=== PATIENT | female | born 1970 | race Caucasian/White ===

== ENCOUNTER 2018-01-18 17:39 | Emergency (ER) | payer OTHER ==
[2018-01-18] MEDS ORDERED: SODIUM CHLORIDE 0.9% 1,000 ML IV STA (18:33)
--- NOTE | 2018-01-18 18:59 | ED ---
SOB HPI - General Chief Complaint: Shortness of Breath Stated Complaint: SOB, chest pain & cough Time Seen by Provider: 01/18/18 18:15 Source: patient, RN notes reviewed Mode of arrival: ambulatory Limitations: no limitations - History of Present Illness Initial Comments: This is a 47-year-old female who presents to the emergency department with chief complaint of cough, chest pain and shortness of breath. Patient states that she has been having on going intermittent episodes of chest pain since November. She states that she has been having shortness of breath for 1 month. She states that she developed a cough on Thursday. Patient states that she was treated for a sinus infection with Levaquin and finished her antibiotic approximately 3-4 days ago. She continues to have a headache, nasal congestion and lightheadedness. She was supposed to go for an echo and stress test today but did not do so, stating she missed it because she has not been feeling well. She reports that her chest pain started in November and believes that it is due to anxiety. She states that her had a pulmonary embolism and in front of her in her living room. She states that he was brought back by EMS. Since that time, she has been having intermittent episodes of chest pain that she describes as left-sided and as a tightness. She states that sometimes the chest pain is relieved with Xanax. Cough began on Thursday and is productive of yellow sputum. She has been using a Breo inhaler that was prescribed to her by her PCP. She also reports nausea that started today as well as chills. Denies fevers, abdominal pain, vomiting, diarrhea or constipation, dysuria or hematuria, dizziness. - Related Data Home Medications Medication Instructions Recorded Confirmed ALPRAZolam [Xanax] 1 mg PO TID PRN 01/18/18 01/18/18 Albuterol Nebulized [Ventolin 2.5 mg INHALATION RT-Q6H PRN 01/18/18 01/18/18 Nebulized] DULoxetine HCL [Cymbalta] 60 mg PO HS 01/18/18 01/18/18 Fluticasone/Vilanterol [Breo 1 puff INHALATION RT-DAILY 01/18/18 01/18/18 Ellipta 100-25 Mcg Inhaler] Ibuprofen [Motrin] 800 mg PO TID PRN 01/18/18 01/18/18 Previous Rx's Medication Instructions Recorded Azithromycin [Zithromax Z-pack] 0 mg PO DIRECTED #6 tab 01/18/18 Allergies Allergy/AdvReac Type Severity Reaction Status Date / Time Iodinated Contrast- Oral and Allergy Rash/Hives Verified 01/18/18 18:40 IV Dye [Iodinated Contrast Media - IV Dye] loracarbef [From Lorabid] Allergy Nausea & Verified 01/18/18 18:40 Vomiting Penicillins Allergy Rash/Hives Verified 01/18/18 18:40 sulfamethoxazole Allergy Rash/Hives Verified 01/18/18 18:40 [From Bactrim] trimethoprim [From Bactrim] Allergy Rash/Hives Verified 01/18/18 18:40 codeine AdvReac Vomiting Verified 01/18/18 18:40 Review of Systems ROS Statement: Those systems with pertinent positive or pertinent negative responses have been documented in the HPI. ROS Other: All systems not noted in ROS Statement are negative. Past Medical History Additional Past Medical History / Comment(s): fibromyalgia, back pain History of Any Multi-Drug Resistant Organisms: None Reported Past Surgical History: Section, Orthopedic Surgery, Tubal Ligation Additional Past Surgical History / Comment(s): knee Past Psychological History: No Psychological Hx Reported Smoking Status: Never smoker Past Alcohol Use History: None Reported Past Drug Use History: None Reported General Exam - General Exam Comments Initial Comments: General: Awake and alert, well-developed; in no apparent distress. HEENT: Head atraumatic, normocephalic. Pupils are equal, round and reactive to light. Extraocular movements intact. Oropharynx moist without erythema or exudate. Bilateral TMs are pearly without effusion. Neck: Supple. Normal ROM. Cardiovascular: Regular rate and rhythm. No murmurs, rubs or gallops. Chest symmetrical. Respiratory: Lungs clear to auscultation bilaterally. No wheezes, rales or rhonchi. Normal respiratory effort with no use of accessory muscles. Abdomen: Soft, non-tender, non-distended. No rigidity, rebound or guarding. Normal bowel sounds in all 4 quadrants. Musculoskeletal: Normal ROM, no tenderness bilateral upper and lower extremities. Ambulating normally. Skin: [place], warm and dry without rashes or lesions. Neurological: Alert and oriented x3. CN II-XII grossly intact. Speech is fluent and answers are appropriate. No focal neuro deficits. Psychiatric: Patient becomes tearful while describing chest pain. Anxious- appearing. Limitations: no limitations Course Vital Signs 01/18/18 01/18/18 01/18/18 18:05 19:07 20:38 Temperature 98.4 F 98.7 F 98.7 F Pulse Rate 100 90 86 Respiratory 18 18 20 Rate Blood Pressure 139/87 134/70 135/86 O2 Sat by Pulse 96 97 96 Oximetry - Reevaluation(s) Reevaluation #1: Case discussed with attending physician, Dr. Gustafson. Recommended CTA. Patient does have an ALLERGY to IV contrast so be given steroids, Pepcid and Benadryl. Patient also admits to being claustrophobic and having anxiety when in tight spaces. Will be given Ativan. 01/18/18 20:18 Medical Decision Making - Medical Decision Making This is a 47-year-old female who presented to the emergency department with chief complaint of chest pain, shortness of breath and cough. Patient states she believes her shortness of breath and chest pain is related to anxiety. She did however, have a stress test and echo scheduled for today which she missed because she has not been feeling well. EKG revealed normal sinus rhythm. Chest x-ray revealed no acute cardiopulmonary processes. CBC, CMP were unremarkable. Troponin and cardiac profile were negative. This case was discussed with attending physician, Dr. Gustafson who recommended CTA chest. CTA did reveal evidence for developing pneumonia of left mid to lower lung. azithromycin will be prescribed. Patient was made aware of findings and plan. vital signs are stable and she is in no acute distress. She will be discharged home at this time. All questions answered. - Lab Data Result diagrams: 01/18/18 18:55 01/18/18 18:55 Lab Results 01/18/18 01/18/18 01/18/18 Range/Units 18:55 18:55 18:55 WBC 7.2 (3.8-10.6) k/uL RBC 5.24 (3.80-5.40) m/uL Hgb 13.8 (11.4-16.0) gm/dL Hct 41.2 (34.0-46.0) % MCV 78.7 L (80.0-100.0) fL MCH 26.4 (25.0-35.0) pg MCHC 33.6 (31.0-37.0) g/dL RDW 15.5 (11.5-15.5) % Plt Count 307 (150-450) k/uL Neutrophils % 56 % Lymphocytes % 36 % Monocytes % 6 % Eosinophils % 1 % Basophils % 0 % Neutrophils # 4.1 (1.3-7.7) k/uL Lymphocytes # 2.6 (1.0-4.8) k/uL Monocytes # 0.4 (0-1.0) k/uL Eosinophils # 0.1 (0-0.7) k/uL Basophils # 0.0 (0-0.2) k/uL Microcytosis Slight Sodium 141 (137-145) mmol/L Potassium 4.0 (3.5-5.1) mmol/L Chloride 102 (98-107) mmol/L Carbon Dioxide 21 L (22-30) mmol/L Anion Gap 18 mmol/L BUN 14 (7-17) mg/dL Creatinine 1.00 (0.52-1.04) mg/dL Est GFR (CKD-EPI)AfAm 79 (>60 ml/min/1.73 sqM) Est GFR (CKD-EPI)NonAf 68 (>60 ml/min/1.73 sqM) Glucose 107 H (74-99) mg/dL Calcium 9.5 (8.4-10.2) mg/dL Total Bilirubin 0.3 (0.2-1.3) mg/dL AST 18 (14-36) U/L ALT 18 (9-52) U/L Alkaline Phosphatase 106 (38-126) U/L Total Creatine Kinase 51 (30-135) U/L CK-MB (CK-2) 0.3 (0.0-2.4) ng/mL CK-MB (CK-2) Rel Index 0.6 Troponin I <0.012 (0.000-0.034) ng/mL Total Protein 7.5 (6.3-8.2) g/dL Albumin 4.2 (3.5-5.0) g/dL - EKG Data EKG Comments: EKG 17:57:09. Normal sinus rhythm. Ventricular rate 84 bpm, NV interval 140, QRS duration 92, QT/QTC 348/411 - Radiology Data Radiology results: report reviewed Chest x-ray impression: No acute process. CTA chest impression: Developing left mid and lower bronchopneumonia. Disposition Clinical Impression: Bronchopneumonia Disposition: HOME SELF-CARE Condition: Good Instructions: Community Acquired Pneumonia (ED) Additional Instructions: Please take medications as prescribed. Please follow up with primary care provider within 1-2 days. Return to emergency department if symptoms should worsen or any concerns arise. Prescriptions: Azithromycin [Zithromax Z-pack] 0 mg PO DIRECTED #6 tab Is patient prescribed a controlled substance at discharge?: No Referrals: Daniel Randolph DO [Primary Care Provider] - 1-2 days Time of Disposition: 22:07
[2018-01-18 19:08] VITALS: TEMP 98.7
[2018-01-18 19:14] LABS: Basophils % (A) 0 %; Eosinophils # (A) 0.1 k/uL (0-0.7); Eosinophils % (A) 1 %; HCT 41.2 % (34.0-46.0); HGB 13.8 gm/dL (11.4-16.0); Lymphocytes # (A) 2.6 k/uL (1.0-4.8); Lymphocytes % (A) 36 %; MCH 26.4 pg (25.0-35.0); MCHC 33.6 g/dL (31.0-37.0); MCV 78.7 fL (80.0-100.0); Mean Platelet Volume 6.3; Microcytosis Slight; Monocytes # (A) 0.4 k/uL (0-1.0); Monocytes % (A) 6 %; Neutrophils # (A) 4.1 k/uL (1.3-7.7); Neutrophils % (A) 56 %; Platelet Count 307 k/uL (150-450); RBC 5.24 m/uL (3.80-5.40); RDW 15.5 % (11.5-15.5); WBC 7.2 k/uL (3.8-10.6)
[2018-01-18 19:24] LABS: Albumin 4.2 g/dL (3.5-5.0); Calcium 9.5 mg/dL (8.4-10.2); Total Bilirubin 0.3 mg/dL (0.2-1.3); Total Protein 7.5 g/dL (6.3-8.2)
[2018-01-18 19:35] LABS: Creatine Kinase 51 U/L (30-135)
[2018-01-18 19:48] LABS: Creatine Kinase MB 0.3 ng/mL (0.0-2.4); Troponin I <0.012 ng/mL (0.000-0.034)
--- NOTE | 2018-01-18 20:01 | XR ---
EXAMINATION: XR chest 2V DATE AND TIME: 01/18/2018 6:54 PM ORDERING PROVIDER: Leslye Deshpande CLINICAL INDICATION: difficulty breathing TECHNIQUE: PA and lateral COMPARISON: None. DESCRIPTION: The lungs are clear. The pleural spaces are negative. The cardiac silhouette is not enlarged. The mediastinal and pleural silhouettes are unremarkable. The skeletal structures are intact without focal findings. The soft tissues are unremarkable. IMPRESSION: NO ACUTE PROCESS.
[2018-01-18] MEDS ORDERED: LORazepam 2 MG/ML INJ IV STA (20:16)
[2018-01-18] MEDS ORDERED: diphenhydrAMINE 50 MG/ML 1 ML VIAL IVP STA (20:16)
[2018-01-18] MEDS ORDERED: FAMOTIDINE 20 MG/2 ML VIAL IV STA (20:16)
[2018-01-18] MEDS ORDERED: methylPREDNISolone SOD SUCCI 125 MG/2 ML VIAL IV STA (20:16)
[2018-01-18] MEDS ORDERED: RX INFO: IV CONTRAST WAS GIVEN 1 EACH MISC MISCELLANE PRN (20:17)
[2018-01-18 20:38] VITALS: BP 135/86; PULSE 86; RESP 20
--- NOTE | 2018-01-18 21:38 | CT ---
EXAMINATION TYPE: CT angio chest with contrast and with 3-D reconstruction renderings. DATE OF EXAM: 01/18/2018 9:05 PM COMPARISON: NONE HISTORY: Chest pain and cough CT DLP: 587.2 mGycm. Automated exposure control for dose reduction was used. CONTRAST: CTA scan of the thorax is performed with IV Contrast, patient injected with 80 mL of Isovue 370, pulmonary embolism protocol. 3-D Reconstruction rendering. FINDINGS: The tracheobronchial tree is patent. Ill-defined small groundglass and consolidative opacities in the axial compartment of the lung, consi stent with developing bronchopneumonia within the left mid and lower lung zone. Remainder of the lung s are clear bilaterally. There is no pleural effusion or pneumothorax. There is satisfactory enhancement of the pulmonary artery and its branches, there is no CT evidence f or pulmonary embolism. There are no greater than 1 cm hilar or mediastinal lymph nodes. The aorta is unremarkable. No cardiomegaly. No pericardial effusion. No skeletal findings. IMPRESSION: DEVELOPING LEFT MID AND LOWER BRONCHOPNEUMONIA.
== END 2018-01-18 22:22 | disposition home or self-care (01) ==
LOC: EC 17:39
DX: J18.0 Bronchopneumonia, unspecified organism (principal); M79.7 Fibromyalgia; Z79.51 Long term (current) use of inhaled steroids; Z79.899 Other long term (current) drug therapy; Z91.041 Radiographic dye allergy status; Z88.8 Allergy status to other drugs, medicaments and biological substances; Z88.0 Allergy status to penicillin; Z88.2 Allergy status to sulfonamides; Z88.5 Allergy status to narcotic agent
CPT/HCPCS: 99285; 96374; 96375 ×3; 96361 ×2; 36415; 93005; 80053; 82550; 82553; 84484; 85025; 71046; 71275; J2060; J1200; J2930; Q9967

== ENCOUNTER 2018-09-11 12:47 | Emergency (ER) | payer OTHER ==
[2018-09-11 13:11] VITALS: RESP 18; TEMP 98.1
[2018-09-11] MEDS ORDERED: PANTOPRAZOLE 40 MG/10 ML VIAL IVP STA (13:29)
[2018-09-11] MEDS ORDERED: SODIUM CHLORIDE 0.9% 1,000 ML IV STA (13:29)
[2018-09-11] MEDS ORDERED: methylPREDNISolone SOD SUCCI 125 MG/2 ML VIAL IV STA (13:31)
[2018-09-11] MEDS ORDERED: diphenhydrAMINE 50 MG/ML 1 ML VIAL IVP STA (13:31)
[2018-09-11] MEDS ORDERED: FAMOTIDINE 20 MG/2 ML VIAL IV STA (13:31)
--- NOTE | 2018-09-11 13:32 | ED ---
General Adult HPI - General Chief complaint: Abdominal Pain Stated complaint: abdominal pain Source: patient, RN notes reviewed, old records reviewed Mode of arrival: ambulatory - History of Present Illness Initial comments: 47-year-old female patient past medical history including depression, GERD, anxiety, fibromyalgia presents to ED approximately 1 month of epigastric abdominal pain. Patient states that this pain is described as a pressure, burning sensation. Patient additionally has some substernal burning today which been going on since 3 AM this morning. Patient states that the substernal burning is not affected by exertion, denies sensation elephants sitting on chest, denies diaphoresis. Patient complained of approximately 1 month of nausea without emesis. Patient denies shortness of breath, pleuritic chest pain, headache, changes in vision. Patient had a tubal ligation, states that she cannot be . Systemic: Pt denies fatigue, myalgia, fever/chills, rash. Pt denies weakness, night sweats, weight loss. Neuro: Pt denies headache, visual disturbances, syncope or pre-syncope. HEENT: Pt denies ocular discharge or irritation, otalgia, rhinorrhea, pharyngitis or notable lymphadenopathy. Cardiopulmonary: Pt denies SOB, heart palpitations, dyspnea on exertion. : Pt denies dysuria, burning w/ urination, frequency/urgency. Denies new onset urinary or bowel incontinence. MSK: Pt denies myalgia, loss of strength or function in extremities. Neuro: Pt denies new onset weakness, paresthesias. - Related Data Home Medications Medication Instructions Recorded Confirmed ALPRAZolam [Xanax] 1 mg PO TID PRN 01/18/18 01/18/18 Albuterol Nebulized [Ventolin 2.5 mg INHALATION RT-Q6H PRN 01/18/18 01/18/18 Nebulized] DULoxetine HCL [Cymbalta] 60 mg PO HS 01/18/18 01/18/18 Fluticasone/Vilanterol [Breo 1 puff INHALATION RT-DAILY 01/18/18 01/18/18 Ellipta 100-25 Mcg Inhaler] Ibuprofen [Motrin] 800 mg PO TID PRN 01/18/18 01/18/18 Previous Rx's Medication Instructions Recorded Azithromycin [Zithromax Z-pack] 0 mg PO DIRECTED #6 tab 01/18/18 Omeprazole 20 mg PO DAILY #20 capsule. 09/11/18 Allergies Allergy/AdvReac Type Severity Reaction Status Date / Time Iodinated Contrast- Oral and Allergy Rash/Hives Verified 01/18/18 18:40 IV Dye [Iodinated Contrast Media - IV Dye] loracarbef [From Lorabid] Allergy Nausea & Verified 01/18/18 18:40 Vomiting Penicillins Allergy Rash/Hives Verified 01/18/18 18:40 sulfamethoxazole Allergy Rash/Hives Verified 01/18/18 18:40 [From Bactrim] trimethoprim [From Bactrim] Allergy Rash/Hives Verified 01/18/18 18:40 codeine AdvReac Vomiting Verified 01/18/18 18:40 Review of Systems ROS Statement: Those systems with pertinent positive or pertinent negative responses have been documented in the HPI. ROS Other: All systems not noted in ROS Statement are negative. Past Medical History Past Medical History: Diabetes Mellitus Additional Past Medical History / Comment(s): fibromyalgia, back pain History of Any Multi-Drug Resistant Organisms: None Reported Past Surgical History: Section, Orthopedic Surgery, Tubal Ligation Additional Past Surgical History / Comment(s): knee Past Psychological History: No Psychological Hx Reported Smoking Status: Never smoker Past Alcohol Use History: None Reported Past Drug Use History: Marijuana General Exam - General Exam Comments Initial Comments: Constitutional: NAD, AOX3, Pt has pleasant affect. HEENT: NC/AT, trachea midline, neck supple, no lymphadenopathy. Posterior pharynx non erythematous, without exudates. External ears appear normal, without discharge. Mucous membranes moist. Eyes PERRLA, EOM intact. There is no scleral icterus. No pallor noted. Cardiopulmonary: RRR, no murmurs, rubs or gallops, no JVD noted. Lungs CTAB in anterior and posterior gonzalez. No peripheral edema. Abdominal exam: Abdomen soft and non-distended. Epigastric region of abdomen mildly tender to palpation, patient complains of generalized abdominal tenderness. No ecchymoses. Bowel sounds active in LLQ. No hepatosplenomegaly. Neuro: CN II-XIIintact. No facial droop, no focal deficit. No nuchal rigidity. MSK: No posterior calf tenderness bilaterally, homans sign negative bilaterally. Posterior tibialis and radial pulse +2 bilaterally. Patient is ambulatory without difficulty. Course Vital Signs 09/11/18 09/11/18 13:07 16:48 Temperature 98.1 F Pulse Rate 112 H 86 Respiratory 18 18 Rate Blood Pressure 127/82 100/57 O2 Sat by Pulse 97 95 Oximetry Medical Decision Making - Medical Decision Making 47-year-old female patient past medical history including depression, GERD, anxiety, fibromyalgia presents to ED approximately 1 month of epigastric abdominal pain. Patient states that this pain is described as a pressure, burning sensation. Patient additionally has some substernal burning today which been going on since 3 AM this morning. Patient states that the substernal burning is not affected by exertion, denies sensation elephants sitting on chest, denies diaphoresis. Physical exam revealed reproducible epigastric tenderness, patient said this is the pain that she has been experiencing. Physical exam did not display any other acute pathology. Systems examined including HEENT, neuro, cardiopulmonary, abdominal, MSK. Laboratory investigations were conducted. CBC revealed mild leukocytosis of 12.5. CMP was non-impressive. Troponin was negative, lipase was within normal limits. UA was non-impressive. A chest x-ray did not display any acute process. EKG that concerning for ischemia. Abdomen pelvis CT with contrast was conducted displayed possible colitis. Patient treated with omeprazole. Patient to follow up with PCP in 1-2 days. Patient agreement with this plan. Patient to return to ED if any new signs or symptoms of including chest pain, shortness breath, abdominal pain, nausea vomiting diarrhea, any other new symptoms. Pt discussed with Dr. Sanchez. - Lab Data Result diagrams: 09/11/18 13:44 09/11/18 13:44 Lab Results 09/11/18 09/11/18 09/11/18 Range/Units 13:44 13:44 13:44 WBC 12.5 H (3.8-10.6) k/uL RBC 5.20 (3.80-5.40) m/uL Hgb 13.1 (11.4-16.0) gm/dL Hct 41.4 (34.0-46.0) % MCV 79.6 L (80.0-100.0) fL MCH 25.2 (25.0-35.0) pg MCHC 31.7 (31.0-37.0) g/dL RDW 16.4 H (11.5-15.5) % Plt Count 363 (150-450) k/uL Neutrophils % 61 % Lymphocytes % 30 % Monocytes % 4 % Eosinophils % 3 % Basophils % 0 % Neutrophils # 7.6 (1.3-7.7) k/uL Lymphocytes # 3.8 (1.0-4.8) k/uL Monocytes # 0.5 (0-1.0) k/uL Eosinophils # 0.4 (0-0.7) k/uL Basophils # 0.0 (0-0.2) k/uL Anisocytosis Slight Microcytosis Slight Sodium 140 (137-145) mmol/L Potassium 4.4 (3.5-5.1) mmol/L Chloride 105 (98-107) mmol/L Carbon Dioxide 22 (22-30) mmol/L Anion Gap 13 mmol/L BUN 15 (7-17) mg/dL Creatinine 0.94 (0.52-1.04) mg/dL Est GFR (CKD-EPI)AfAm 84 (>60 ml/min/1.73 sqM) Est GFR (CKD-EPI)NonAf 73 (>60 ml/min/1.73 sqM) Glucose 124 H (74-99) mg/dL Calcium 10.1 (8.4-10.2) mg/dL Total Bilirubin 0.5 (0.2-1.3) mg/dL AST 28 (14-36) U/L ALT 19 (9-52) U/L Alkaline Phosphatase 104 (38-126) U/L Troponin I <0.012 (0.000-0.034) ng/mL Total Protein 8.1 (6.3-8.2) g/dL Albumin 4.5 (3.5-5.0) g/dL Lipase 89 (23-300) U/L Urine Color Urine Appearance (Clear) Urine pH (5.0-8.0) Ur Specific [place] (1.001-1.035) Urine Protein (Negative) Urine Glucose (UA) (Negative) Urine Ketones (Negative) Urine Blood (Negative) Urine Nitrite (Negative) Urine Bilirubin (Negative) Urine Urobilinogen (<2.0) mg/dL Ur Leukocyte Esterase (Negative) Urine WBC (0-5) /hpf Ur Squamous Epith Cells (0-4) /hpf Hyaline Casts (0-2) /lpf Urine Mucus (None) /hpf Urine HCG, Qual (Not Detectd) 12/08/18 12/08/18 Range/Units 15:28 15:28 WBC (3.8-10.6) k/uL RBC (3.80-5.40) m/uL Hgb (11.4-16.0) gm/dL Hct (34.0-46.0) % MCV (80.0-100.0) fL MCH (25.0-35.0) pg MCHC (31.0-37.0) g/dL RDW (11.5-15.5) % Plt Count (150-450) k/uL Neutrophils % % Lymphocytes % % Monocytes % % Eosinophils % % Basophils % % Neutrophils # (1.3-7.7) k/uL Lymphocytes # (1.0-4.8) k/uL Monocytes # (0-1.0) k/uL Eosinophils # (0-0.7) k/uL Basophils # (0-0.2) k/uL Anisocytosis Microcytosis Sodium (137-145) mmol/L Potassium (3.5-5.1) mmol/L Chloride (98-107) mmol/L Carbon Dioxide (22-30) mmol/L Anion Gap mmol/L BUN (7-17) mg/dL Creatinine (0.52-1.04) mg/dL Est GFR (CKD-EPI)AfAm (>60 ml/min/1.73 sqM) Est GFR (CKD-EPI)NonAf (>60 ml/min/1.73 sqM) Glucose (74-99) mg/dL Calcium (8.4-10.2) mg/dL Total Bilirubin (0.2-1.3) mg/dL AST (14-36) U/L ALT (9-52) U/L Alkaline Phosphatase (38-126) U/L Troponin I (0.000-0.034) ng/mL Total Protein (6.3-8.2) g/dL Albumin (3.5-5.0) g/dL Lipase (23-300) U/L Urine Color Yellow Urine Appearance Cloudy H (Clear) Urine pH 5.5 (5.0-8.0) Ur Specific [place] 1.021 (1.001-1.035) Urine Protein Trace H (Negative) Urine Glucose (UA) Negative (Negative) Urine Ketones Negative (Negative) Urine Blood Negative (Negative) Urine Nitrite Negative (Negative) Urine Bilirubin Negative (Negative) Urine Urobilinogen <2.0 (<2.0) mg/dL Ur Leukocyte Esterase Negative (Negative) Urine WBC 2 (0-5) /hpf Ur Squamous Epith Cells 5 H (0-4) /hpf Hyaline Casts 24 H (0-2) /lpf Urine Mucus Moderate H (None) /hpf Urine HCG, Qual Not Detected (Not Detectd) Disposition Clinical Impression: GERD (gastroesophageal reflux disease), Colitis Disposition: HOME SELF-CARE Condition: Good Instructions: Gastroesophageal Reflux Disease (ED), Colitis (ED) Additional Instructions: Patient to adhere to previously discussed treatment plan and will take medication(s) as directed. Patient to follow up with PCP in 1-2 days. Patient to return to ED if symptoms do not improve. Prescriptions: Omeprazole 20 mg PO DAILY #20 capsule.dr Is patient prescribed a controlled substance at d/c from ED?: No Referrals: Daniel Randolph DO [Primary Care Provider] - 1-2 days Time of Disposition: 17:13
[2018-09-11 14:09] LABS: Anisocytosis Slight; Basophils % (A) 0 %; Eosinophils # (A) 0.4 k/uL (0-0.7); Eosinophils % (A) 3 %; HCT 41.4 % (34.0-46.0); HGB 13.1 gm/dL (11.4-16.0); Lymphocytes # (A) 3.8 k/uL (1.0-4.8); Lymphocytes % (A) 30 %; MCH 25.2 pg (25.0-35.0); MCHC 31.7 g/dL (31.0-37.0); MCV 79.6 fL (80.0-100.0); Mean Platelet Volume 6.7; Microcytosis Slight; Monocytes # (A) 0.5 k/uL (0-1.0); Monocytes % (A) 4 %; Neutrophils # (A) 7.6 k/uL (1.3-7.7); Neutrophils % (A) 61 %; Platelet Count 363 k/uL (150-450); RDW 16.4 % (11.5-15.5); WBC 12.5 k/uL (3.8-10.6)
[2018-09-11 14:19] LABS: Albumin 4.5 g/dL (3.5-5.0); Calcium 10.1 mg/dL (8.4-10.2); Potassium 4.4 mmol/L (3.5-5.1); Total Bilirubin 0.5 mg/dL (0.2-1.3); Total Protein 8.1 g/dL (6.3-8.2)
--- NOTE | 2018-09-11 15:56 | CT ---
EXAMINATION TYPE: CT abdomen pelvis w con DATE OF EXAM: 09/11/2018 COMPARISON: Prior CT 09/18/2015 HISTORY: Abdominal pain with nausea and vomiting. CT DLP: 1846.1 mGycm Automated exposure control for dose reduction was used. TECHNIQUE: Helical acquisition of images from the lung bases through the pelvis have been completed. CONTRAST: Performed without Oral Contrast and with IV Contrast, patient injected with 100 mL of Isovue 300. FINDINGS: There is a small hiatal hernia present. LUNG BASES: No significant abnormality is appreciat ed. AORTA: No significant abnormality is appreciated. LIVER/GB: The liver shows low attenuation likely due to hepatic steatosis, gallbladder is normal PANCREAS: No significant abnormality is seen. SPLEEN: No significant abnormality is seen. ADRENALS: No significant abnormality is seen. KIDNEYS: Small cortical cyst is present at the lower pole on the left measuring approximately 11 mm. REPRODUCTIVE ORGANS: Left ovarian cyst has resolved. There may be a small right ovarian follicle pres ent, uterus is unremarkable BOWEL: Question some wall thickening in the colon. The appendix is richard l FREE AIR: No Free Air visible. ASCITES: None visible.. PELVIC ADENOPATHY: None visualized. RETROPERITONEAL ADENOPATHY: No Retroperitoneal Adenopathy visible. URINARY BLADDER: No significant abnormality is seen. OSSEOUS STRUCTURES: No significant abnormality is seen. IMPRESSION: CORRELATE FOR POSSIBLE COLITIS. HEPATIC STEATOSIS. SMALL HIATAL HERNIA PRESENT.
[2018-09-11 15:57] LABS: Appearance,Urine Cloudy (Clear); Bilirubin,Urine Negative (Negative); Blood,Urine Negative (Negative); Color,Urine Yellow; Glucose,Urine (UA) Negative (Negative); Hyaline Casts,Urine 24 /lpf (0-2); Ketones,Urine Negative (Negative); Leukocyte Esterase,Urine Negative (Negative); Mucus,Urine Moderate /hpf; Nitrite,Urine Negative (Negative); PH, Urine 5.5 (5.0-8.0); Protein,Urine Trace (Negative); Specific Gravity,Urine 1.021 (1.001-1.035); Squamous Epithelial Cell,Urine 5 /hpf (0-4); Urobilinogen,Urine <2.0 mg/dL (<2.0)
[2018-09-11] MEDS ORDERED: ONDANSETRON 4 MG/2 ML VIAL IVP STA (16:42)
--- NOTE | 2018-09-11 16:49 | XR ---
EXAMINATION TYPE: XR chest 2V DATE OF EXAM: 09/11/2018 COMPARISON: Prior chest x-ray 01/18/2018 HISTORY: Chest pain and shortness of breath TECHNIQUE: Frontal and lateral views of the chest are obtained. FINDINGS: There is no focal air space opacity, pleural effusion, or pneumothorax seen. The cardiac silhouette size is within normal limits. The osseous structures are intact. IMPRESSION: No acute cardiopulmonary process.
[2018-09-11 16:50] VITALS: BP 100/57; PULSE 86
== END 2018-09-11 17:30 | disposition home or self-care (01) ==
LOC: EC 12:47
DX: K21.9 Gastro-esophageal reflux disease without esophagitis (principal); K52.9 Noninfective gastroenteritis and colitis, unspecified; E11.9 Type 2 diabetes mellitus without complications; F41.9 Anxiety disorder, unspecified; Z79.51 Long term (current) use of inhaled steroids; Z79.899 Other long term (current) drug therapy; Z88.0 Allergy status to penicillin; Z88.2 Allergy status to sulfonamides; Z88.5 Allergy status to narcotic agent; Z88.8 Allergy status to other drugs, medicaments and biological substances; Z91.041 Radiographic dye allergy status; Z91.048 Other nonmedicinal substance allergy status
CPT/HCPCS: 36415; 93005; 80053; 83690; 84484; 85025; 81001; 81025; 71046; 74177; 99285; 96374; 96375 ×3; 96361; J1200; J2930; J2405; Q9967

== ENCOUNTER → 2018-10-23 | Outpatient (CLI) | payer OTHER ==
--- NOTE | 2018-10-23 11:47 | NM ---
Nuclear medicine hepatobiliary scan. HISTORY: Pain. DOSAGE: The patient received 8 ounces of ensure plus and 4.9 mCi of Technetium 99m Choletec. FINDINGS: There is normal hepatic extraction. The gallbladder is seen by 15 minutes. There is bilia ry to bowel clearance by 20 minutes. Ejection fraction is 73%. IMPRESSION: 1. Normal hepatobiliary exam
== END | disposition home or self-care (01) ==
LOC: RADNMMAIN 09:10
PROVIDERS: ATTEND Family Medicine
DX: R10.11 Right upper quadrant pain (principal); Z88.0 Allergy status to penicillin; Z88.5 Allergy status to narcotic agent
CPT/HCPCS: 78226; A9537

== ENCOUNTER → 2018-10-28 | Outpatient (CLI) | payer OTHER ==
[~2018-10-28] MED LIST: DOBUTamine DRIP for NUC MED 500 MG in DEXTROSE/WATER 1 250ML.BAG IV ONE
--- NOTE | 2018-10-28 10:18 | P.STRESS ---
- Stress Test Note Stress Test Results/Findings: Exam Performed: dobutamine stress echo Exam Date: 10/28/18 Reason for Exam: cp Height: 5 ft 2 in Weight: 116.573 kg Protocol: dobutamine stress echo Stage: 3 Duration of Exercise: 10min 50 sec Resting Heart Rate: 82 Resting Blood Pressure: 112/99 Maximum Achieved Heart Rate: 150 Maximum Achieved Blood Pressure: 177/59 85% PMHR: 148 100% PMHR: 174 METS: na Technologist Comment: Stress Test Results/Findings: Baseline heart rate 82 beats a minute Baseline blood pressure initially elevated but then came to normal range 112/90. His mercury Baseline twelve-lead ECG shows sinus rhythm with normal ST segments Patient exercised on a [place] protocol for 10 minutes 50 seconds achieving a peak heart rate of 150 beats a minute normal blood pressure response to exercise. Blood pressure remained normal during exercise There was no ECG is for ischemia no arrhythmias noted Baseline 2-D echo images showed normal LV systolic function without segmental wall motion abnormalities With dobutamine infusion there was a stepwise increment and overall LV contractility without development of any wall motion abnormalities @Recovery region global LV systolic function are normal Impression no ECG or echocardiographic evidence for ischemia on this dobutamine stress echo study
== END | disposition home or self-care (01) ==
LOC: RADNMMAIN 08:52
PROVIDERS: ATTEND Family Medicine
DX: R07.9 Chest pain, unspecified (principal); R06.02 Shortness of breath; Z88.0 Allergy status to penicillin; Z88.5 Allergy status to narcotic agent
CPT/HCPCS: 93351; J1250

== ENCOUNTER 2018-11-12 07:39 | Day surgery (SDC) | payer OTHER ==
[2018-11-10 14:33] VITALS: BMI 46.0
[~2018-11-12 07:39] MED LIST changes: -DOBUTamine DRIP for NUC MED 500 MG in DEXTROSE/WATER 1 250ML.BAG IV ONE; +LACTATED RINGERS 1,000 ML IV SCH
[2018-11-12 08:00] VITALS: TEMP 97.8
[2018-11-12 08:08] LABS: Glucose,Whole Blood 129 mg/dL (75-99)
[2018-11-12] MEDS ORDERED: PROPOFOL 10 MG/ML 20 ML VIAL IV ONE (08:53)
--- NOTE | 2018-11-12 09:12 | P.PCN ---
Date of Procedure: 11/12/18 Procedure(s) Performed: Brief history: Patient is a pleasant 47-year-old pleasant white female scheduled for an elective upper endoscopy as well as colonoscopy as a part of evaluation of gastroesophageal reflux symptoms, epigastric pain and chronic diarrhea for the last 6 months duration. Procedure performed: Esophagogastroduodenoscopy with biopsy Colonoscopy with biopsy Preoperative diagnosis: GERD/epigastric pain Chronic diarrhea Anesthesia: MAC Procedure: After informed consent was obtained from the patient was brought into the endoscopy unit and IV sedation was administered by anesthesia under continuous monitoring. Initially upper endoscopy was done. The Olympus GF 160 video endoscope was inserted inserted into the mouth and esophagus intubated without any difficulty and was gradually advanced into the stomach and duodenum and carefully examined. The bulb and second part of the duodenum appeared normal. The scope was then withdrawn into the stomach adequately insufflated with air and upon careful examination the antrum had mild gastritis and biopsies were done from this area. The body, cardia and fundus appeared normal. A small gastric polyps noted in the proximal body the stomach which was biopsied. The scope was then withdrawn into the esophagus. The GE junction was located at 40 cm to the incisors. There were scattered erosions and one ulceration at the GE junction consistent with LA grade B reflux esophagitis. Rest of the esophagus appeared normal. Patient tolerated the procedure well. At this time the patient continued to remain sedation. Initial digital rectal examination was normal. Olympus CF 160 video colonoscope was then inserted into the rectum and gradually advanced to the cecum without any difficulty. Careful examination was performed as the scope was gradually being withdrawn. The prep was excellent. The cecum, ascending colon, transverse colon, descending colon, sigmoid colon and rectum appeared normal. Random biopsies were done from ascending and descending colon to rule out collagenous/ microscopic colitis. Retroflexion was performed in the rectum and no lesions were noted. Patient tolerated the procedure well. Impression: 1. Upper endoscopy revealed mild antral gastritis, LA grade B reflux esophagitis and small gastric polyps 2. Colonoscopy was within normal limits with no evidence of colitis or colorectal neoplasia Recommendations: Findings of this examination were discussed with the patient as well as her family. She was advised to follow with the biopsy results. She was given a prescription for Prilosec 20 mg daily to be taken half hour before breakfast and follow antireflux measures. She was advised to follow up in the office in 2 weeks to discuss the biopsy results..
[2018-11-12 09:18] VITALS: RESP 16
[2018-11-12 09:30] VITALS: BP 116/61; PULSE 72
== END 2018-11-12 09:52 | disposition home or self-care (01) ==
LOC: ORWHC2ENDO 07:39
PROVIDERS: ATTEND Internal Medicine Gastroenterology
DX: K21.0 Gastro-esophageal reflux disease with esophagitis (principal); K29.50 Unspecified chronic gastritis without bleeding; K29.60 Other gastritis without bleeding; K31.7 Polyp of stomach and duodenum; K52.9 Noninfective gastroenteritis and colitis, unspecified; Z88.2 Allergy status to sulfonamides; Z88.8 Allergy status to other drugs, medicaments and biological substances; Z79.890 Hormone replacement therapy; Z79.899 Other long term (current) drug therapy; G47.33 Obstructive sleep apnea (adult) (pediatric); Z99.89 Dependence on other enabling machines and devices
CPT/HCPCS: 81025; 88305; 45380; 43239; J2704

== ENCOUNTER → 2019-01-19 | Outpatient (CLI) | payer OTHER ==
--- NOTE | 2019-01-19 16:24 | US ---
EXAMINATION TYPE: US pelvic complete DATE OF EXAM: 01/19/2019 COMPARISON: Pelvic ultrasound November 21, 2013 CLINICAL HISTORY: N92.0 Menorrhagia;R10.2 pelvic pain. pre hysterectomy patient, heavy cycles for mon ths, TECHNIQUE: TA. Transabdominal sonographic images of the pelvis were acquired. Date of LMP: EXAM MEASUREMENTS: Uterus: 10.5 x 5.3 x 4.2 cm Endometrial Stripe: 0.6 cm Right Ovary: 2.9 x 2.2 x 1.9 cm Left Ovary: 2.1 x 2.2 x 1.3 cm *morbidly obese patient* 1. Uterus: Anteverted wnl 2. Endometrium: wnl 3. Right Ovary: wnl 4. Left Ovary: wnl 5. Bilateral Adnexa: wnl 6. Posterior cul-de-sac: wnl Anteverted heterogeneous uterus is seen. Endometrial stripe does not appear suspiciously thickened. N o free fluid in pelvic cul-de-sac. Both ovaries are identified. No suspicious adnexal lesions are seen. IMPRESSION: Fairly unremarkable transabdominal pelvic ultrasound.
== END ==
LOC: RADUSWWP 15:42
PROVIDERS: ATTEND Obstetrics & Gynecology
DX: N92.0 Excessive and frequent menstruation with regular cycle (principal)
CPT/HCPCS: 76856

== ENCOUNTER → 2019-01-19 | Outpatient (CLI) | payer OTHER ==
--- NOTE | 2019-01-20 07:55 | XR ---
EXAMINATION TYPE: XR pelvis AP view, XR Hip Bilateral Complete DATE OF EXAM: 01/19/2019 CLINICAL HISTORY: Pelvic and bilateral chronic hip pain. TECHNIQUE: A single AP view of the pelvis is obtained. Two views of the bilateral hips are obtained. COMPARISON: None. FINDINGS: There is no acute fracture/dislocation evident in the pelvis. The sacroiliac joints appear symmetric and unremarkable. Few scattered pelvic phleboliths are seen. Two views of bilateral hips show no acute fracture or dislocation. No focal lytic or sclerotic lesio n seen in the proximal femurs bilaterally. There is mild axial joint space loss with mild acetabular spurring bilaterally fairly symmetric in appearance. The overlying soft tissue is unremarkable bilate rally. IMPRESSION: As above.
--- NOTE | 2019-01-20 07:56 | XR ---
EXAMINATION TYPE: XR knee complete bilateral DATE OF EXAM: 01/19/2019 CLINICAL HISTORY: Chronic bilateral knee pain TECHNIQUE: Three views of the bilateral knees are obtained. COMPARISON: None. FINDINGS: There is no acute fracture/dislocation evident in either knee. There is mild to moderate n arrowing patellofemoral compartments bilaterally. There is mild narrowing medial greater than latera l tibiofemoral compartments bilaterally. No significant spurring. Fairly symmetric appearance in both knees of above. The overlying soft tissue appears unremarkable bilaterally. Bilateral fabellae are i ncidentally noted. IMPRESSION: As above.
--- NOTE | 2019-01-20 08:00 | XR ---
EXAMINATION TYPE: XR lumbar spine 2 or 3V DATE OF EXAM: 01/19/2019 CLINICAL HISTORY: Chronic low back pain. TECHNIQUE: Frontal and lateral images of the lumbar spine are obtained. COMPARISON: CT abdomen and pelvis June 12, 2018 FINDINGS: There are 5 lumbar type vertebral bodies identified. The lumbar spine shows satisfactory alignment without evidence of acute fracture or dislocation. There is mild disc space narrowing L5-S1 level. Vertebral body heights and disk space heights otherwise are within normal limits. There is mi ld to minimal anterior spurring L3-L4 level. Facet arthropathy lower lumbar spine is present. The ov erlying soft tissue appears unremarkable. IMPRESSION: As above.
--- NOTE | 2019-01-20 08:01 | XR ---
EXAMINATION TYPE: XR cervical spine comp DATE OF EXAM: 01/19/2019 TECHNIQUE: Frontal, lateral, oblique, swimmers, and open mouth view of the cervical spine are obtaine d. HISTORY: M25.561 M25.551 M54.5 M54.3 chronic neck pain. COMPARISON: None FINDINGS: The cervical spine is visualized in its entirety from C1 thru the top of T1 level, it is s traightened in alignment without evidence of acute fracture or dislocation. The pre-vertebral soft t issue appears within normal limits. The C1-C2 articulation is within normal limits on the open mouth view. Vertebral body heights are maintained. There is mild disc space narrowing and minimal spurring C5-C6 level. There is mild to moderate disc space narrowing with mild anterior spurring C6-C7 level. Oblique images are felt within normal limits. Overlying soft tissue is unremarkable. IMPRESSION: As above.
--- NOTE | 2019-01-20 08:03 | XR ---
EXAMINATION TYPE: XR thoracic spine complete DATE OF EXAM: 01/19/2019 CLINICAL HISTORY: Chronic mid back pain. TECHNIQUE: Frontal, lateral, and swimmer's view of thoracic spine are obtained. COMPARISON: Thoracic spine x-ray from 2011. FINDINGS: Thoracic spine show satisfactory alignment without evidence of acute fracture or dislocatio n. Vertebral body heights and disc space heights are preserved. Mild multilevel anterior and lateral spurring mid to lower thoracic spine is present with some progression from 2011 study. Visualized ri bs are unremarkable bilaterally. IMPRESSION: No acute fracture or dislocation is seen in the thoracic spine.
== END | disposition home or self-care (01) ==
LOC: RADXRMAIN 16:10
PROVIDERS: ATTEND Family Medicine
DX: M99.71 Connective tissue and disc stenosis of intervertebral foramina of cervical region (principal); M99.73 Connective tissue and disc stenosis of intervertebral foramina of lumbar region; M99.74 Connective tissue and disc stenosis of intervertebral foramina of sacral region; M46.96 Unspecified inflammatory spondylopathy, lumbar region; M77.8 Other enthesopathies, not elsewhere classified; M25.862 Other specified joint disorders, left knee; M25.861 Other specified joint disorders, right knee; M54.6 Pain in thoracic spine
CPT/HCPCS: 72050; 72072; 72100; 72170; 73521

== ENCOUNTER → 2020-08-02 | Outpatient (CLI) | payer OTHER | END | disposition home or self-care (01) | LOC: LABWHC1 15:44 | PROVIDERS: ATTEND Family Medicine | DX: Z03.818 Encounter for observation for suspected exposure to other biological agents ruled out (principal) | CPT/HCPCS: U0003; C9803 ==

== ENCOUNTER → 2020-10-22 | Outpatient (CLI) | payer OTHER ==
--- NOTE | 2020-10-22 16:00 | XR ---
EXAMINATION TYPE: XR lumbar spine 2 or 3V DATE OF EXAM: 10/22/2020 Comparison: 01/19/2019 Clinical History: 49-year-old female M54.5 low back pain Findings: Advanced hypertrophic facet arthropathy lower lumbar spine. Grade 1 anterolisthesis L4-L5. Mild endpl ate spondylosis throughout. Vertebral body heights are preserved. Impression: Advanced hypertrophic facet arthropathy lower lumbar spine with grade 1 anterolisthesis L4-L5. Mild e ndplate spondylosis throughout. No vertebral compression collapse.
--- NOTE | 2020-10-22 16:04 | XR ---
EXAMINATION TYPE: XR Hip Bilateral Complete DATE OF EXAM: 10/22/2020 COMPARISON: 01/19/2019 HISTORY: 49-year-old female bilateral hip pain TECHNIQUE: 2 views each side FINDINGS: There is mild degenerative spurring at the left hip. Tiny os acetabuli or degenerative labral ossific ation on the left. The joint spaces are relatively maintained on both sides. There seems to be some d egenerative spurring at the left SI joint right SI joint incompletely visualized. Pelvic phleboliths. No acute fracture, subluxation, or dislocation. IMPRESSION: Mild degenerative change of the left hip. Additional mild degenerative change of the left SI joint. N o acute osseous abnormality seen.
== END | disposition home or self-care (01) ==
LOC: RADXRMAIN 13:50
PROVIDERS: ATTEND Family Medicine
DX: M43.16 Spondylolisthesis, lumbar region (principal); M47.816 Spondylosis without myelopathy or radiculopathy, lumbar region; M16.12 Unilateral primary osteoarthritis, left hip; M25.551 Pain in right hip; M25.552 Pain in left hip
CPT/HCPCS: 72100; 73521

== ENCOUNTER 2020-12-17 22:54 | Emergency (ER) | payer OTHER ==
[2020-12-17] MEDS ORDERED: IBUPROFEN 400 MG TAB PO STA (23:36)
[2020-12-18 00:01] VITALS: RESP 16
[2020-12-18] MEDS ORDERED: ACETAMINOPHEN TAB 325 MG TAB PO STA (00:28)
--- NOTE | 2020-12-18 01:11 | ED ---
General Adult HPI - General Chief complaint: Shortness of Breath Stated complaint: SOB, headache Time Seen by Provider: 12/17/20 23:10 Source: patient Mode of arrival: ambulatory Limitations: no limitations - History of Present Illness Initial comments: This patient is a 50-year-old woman who presents with multiple complaints. She states she has started having sinus congestion and pressure, cough, burning substernal pain with the cough, headache and feeling hot and cold. The symptoms have been going on 1-2 days. The patient states that her had tested positive for coronavirus. Onset/Timin -: days(s) Location: head, face Quality: burning Consistency: constant Improves with: none Worsens with: none Associated Symptoms: cough, fever/chills - Related Data Home Medications Medication Instructions Recorded Confirmed ALPRAZolam [Xanax] 1 mg PO TID PRN 01/18/18 11/10/18 DULoxetine HCL [Cymbalta] 90 mg PO HS 01/18/18 11/10/18 Ibuprofen [Motrin] 800 mg PO TID PRN 01/18/18 11/10/18 Cyclobenzaprine [Flexeril] 10 mg PO TID PRN 11/10/18 11/10/18 Levothyroxine Sodium [Synthroid] 50 mcg PO DAILY 11/10/18 11/12/18 Allergies Allergy/AdvReac Type Severity Reaction Status Date / Time Iodinated Contrast Media Allergy Rash/Hives Verified 12/17/20 23:06 [Iodinated Contrast Media - IV Dye] loracarbef [From Lorabid] Allergy Nausea & Verified 12/17/20 23:06 Vomiting Penicillins Allergy Rash/Hives Verified 12/17/20 23:06 sulfamethoxazole Allergy Rash/Hives Verified 12/17/20 23:06 [From Bactrim] trimethoprim [From Bactrim] Allergy Rash/Hives Verified 12/17/20 23:06 bupropion [From Wellbutrin] AdvReac Itching Verified 12/17/20 23:06 codeine AdvReac Vomiting Verified 12/17/20 23:06 Review of Systems ROS Statement: Those systems with pertinent positive or pertinent negative responses have been documented in the HPI. ROS Other: All systems not noted in ROS Statement are negative. Constitutional: Reports: as per HPI, fever, chills ENT: Reports: congestion Respiratory: Reports: as per HPI, cough, dyspnea. Denies: wheezes Cardiovascular: Reports: as per HPI, chest pain Gastrointestinal: Denies: abdominal pain, nausea, vomiting, diarrhea Genitourinary: Denies: dysuria, hematuria Musculoskeletal: Denies: back pain Skin: Denies: rash Neurological: Reports: headache. Denies: weakness, numbness Past Medical History Past Medical History: Diabetes Mellitus, Fibromyalgia, GERD/Reflux, Sleep Apnea/CPAP/BIPAP, Thyroid Disorder Additional Past Medical History / Comment(s): diet control diabetic. migraines History of Any Multi-Drug Resistant Organisms: None Reported Past Surgical History: Section, Orthopedic Surgery, Tubal Ligation Additional Past Surgical History / Comment(s): rt knee scope. bilat foot sx Past Anesthesia/Blood Transfusion Reactions: Motion Sickness, Postoperative Nausea & Vomiting (PONV) Past Psychological History: No Psychological Hx Reported Smoking Status: Never smoker Past Alcohol Use History: None Reported Past Drug Use History: Marijuana - Past Family History Mother Family Medical History: Deep Vein Thrombosis (DVT) General Exam Limitations: no limitations General appearance: alert, in no apparent distress Head exam: Present: atraumatic, normocephalic Eye exam: Present: normal appearance, PERRL, EOMI. Absent: scleral icterus, conjunctival injection Neck exam: Present: normal inspection, full ROM, lymphadenopathy. Absent: meningismus Respiratory exam: Present: normal lung sounds bilaterally. Absent: respiratory distress, wheezes, rales, rhonchi, stridor Cardiovascular Exam: Present: regular rate, normal rhythm, normal heart sounds. Absent: systolic murmur, diastolic murmur, rubs, gallop GI/Abdominal exam: Absent: soft, tenderness, guarding, rebound Extremities exam: Present: normal inspection, normal capillary refill. Absent: pedal edema, calf tenderness Neurological exam: Present: alert Skin exam: Present: warm, dry, intact, normal color. Absent: rash Course Vital Signs 12/17/20 12/17/20 12/18/20 23:03 23:58 01:59 Temperature 99.3 F 98.9 F Pulse Rate 102 H 94 Respiratory 22 16 16 Rate Blood Pressure 154/81 125/92 O2 Sat by Pulse 97 97 Oximetry 12/18/20 02:16 Temperature Pulse Rate 86 Respiratory 16 Rate Blood Pressure 120/57 O2 Sat by Pulse 97 Oximetry Medical Decision Making - Lab Data Lab Results 12/17/20 Range/Units 23:44 Coronavirus (PCR) Detected A (Not Detectd) Disposition Clinical Impression: COVID-19 Disposition: HOME SELF-CARE Condition: Good Instructions (If sedation given, give patient instructions): Coronavirus Disease 2019 (COVID-19) Is patient prescribed a controlled substance at d/c from ED?: No Referrals: Daniel Randolph DO [Primary Care Provider] - 1-2 days
[2020-12-18] MEDS ORDERED: BAMLANIVIMAB 700 MG in SODIUM CHLORIDE 0.9% 50 ML IVPB ONE (01:45)
[2020-12-18 02:01] VITALS: TEMP 98.9
[2020-12-18 03:36] VITALS: BP 111/64; PULSE 89
== END 2020-12-18 03:24 | disposition home or self-care (01) ==
LOC: EC 22:54
DX: U07.1 COVID-19 (principal); F12.90 Cannabis use, unspecified, uncomplicated; E11.9 Type 2 diabetes mellitus without complications; M79.7 Fibromyalgia
CPT/HCPCS: 87635; 99284; Q0239

== ENCOUNTER 2021-02-17 20:14 | Inpatient (IN) | payer MEDICAID, OTHER ==
[2021-02-17] MEDS ORDERED: ALPRAZolam 1 MG TAB PO STA (21:11)
[2021-02-17 21:21] LABS: Amphetamine Screen,Urine Not Detected (NotDetected); Barbiturate Screen,Urine Not Detected (NotDetected); Benzodiazepines Screen,Urine Detected (NotDetected); Cocaine Screen,Urine Not Detected (NotDetected); Methadone Screen, Urine Not Detected (NotDetected); Opiate Screen,Urine Not Detected (NotDetected); Oxycodone Screen, Urine Not Detected (NotDetected); Phencyclidine Screen,Urine Not Detected (NotDetected); Tricyclic Antidepressant,Urine Not Detected (NotDetected); Urn Cannabinoid Scrn Not Detected (NotDetected)
--- NOTE | 2021-02-17 22:12 | ED ---
Psych HPI - General Chief Complaint: Psychiatric Symptoms Stated Complaint: Mental Health Time Seen by Provider: 02/17/21 20:23 Source: patient Mode of arrival: ambulatory - History of Present Illness Initial Comments: 50-year-old female presents emergency department for psychiatric evaluation. Patient reports she used to be on Cymbalta but was gradually tapered off. Patient reports she was also started on Trintillex but it is not helping her symptoms. Patient reports her mother recently and her stepfather is removing her belongings. Patient reports today she went to her stepfather's house and noticed some of the long these were given away. Patient reports she had a "mental breakdown" and took off in the car. Patient reports she was very emotional and "wanted to crash the car and ". Daughter is also present in her room and states the patient was found at the cemetery were her father was buried and police contacted her and advised her to come to the emergency department. Patient also reports having recent dental work which included extractions and was started on azithromycin but states that is not helping. States she also has dry sockets. - Related Data Home Medications Medication Instructions Recorded Confirmed ALPRAZolam [Xanax] 1 mg PO TID PRN 01/18/18 11/10/18 DULoxetine HCL [Cymbalta] 90 mg PO HS 01/18/18 11/10/18 Ibuprofen [Motrin] 800 mg PO TID PRN 01/18/18 11/10/18 Cyclobenzaprine [Flexeril] 10 mg PO TID PRN 11/10/18 11/10/18 Levothyroxine Sodium [Synthroid] 50 mcg PO DAILY 11/10/18 11/12/18 Allergies Allergy/AdvReac Type Severity Reaction Status Date / Time Iodinated Contrast Media Allergy Rash/Hives Verified 02/17/21 20:16 [Iodinated Contrast Media - IV Dye] loracarbef [From Lorabid] Allergy Nausea & Verified 02/17/21 20:16 Vomiting Penicillins Allergy Rash/Hives Verified 02/17/21 20:16 sulfamethoxazole Allergy Rash/Hives Verified 02/17/21 20:16 [From Bactrim] trimethoprim [From Bactrim] Allergy Rash/Hives Verified 02/17/21 20:16 bupropion [From Wellbutrin] AdvReac Itching Verified 02/17/21 20:16 codeine AdvReac Vomiting Verified 02/17/21 20:16 Review of Systems ROS Statement: Those systems with pertinent positive or pertinent negative responses have been documented in the HPI. ROS Other: All systems not noted in ROS Statement are negative. Past Medical History Past Medical History: Diabetes Mellitus, Fibromyalgia, GERD/Reflux, Sleep Apnea/CPAP/BIPAP, Thyroid Disorder Additional Past Medical History / Comment(s): diet control diabetic. migraines, arthritis History of Any Multi-Drug Resistant Organisms: None Reported Past Surgical History: Section, Orthopedic Surgery, Tubal Ligation Additional Past Surgical History / Comment(s): rt knee scope. bilat foot sx Past Anesthesia/Blood Transfusion Reactions: Motion Sickness, Postoperative Nausea & Vomiting (PONV) Past Psychological History: Anxiety, Depression, Panic Disorder Smoking Status: Never smoker Past Alcohol Use History: None Reported Past Drug Use History: Marijuana - Past Family History Mother Family Medical History: Deep Vein Thrombosis (DVT) General Exam Limitations: no limitations General appearance: alert, in no apparent distress Head exam: Present: atraumatic, normocephalic, normal inspection Eye exam: Present: normal appearance, PERRL, EOMI Pupils: Present: normal accommodation ENT exam: Present: normal exam, normal oropharynx (Dry sockets noted left lower and left upper region.), mucous membranes moist, TM's normal bilaterally, normal external ear exam Neck exam: Present: normal inspection, full ROM. Absent: tenderness, meningismus, lymphadenopathy Respiratory exam: Present: normal lung sounds bilaterally. Absent: respiratory distress, wheezes, rales, rhonchi, stridor, chest wall tenderness, accessory muscle use Cardiovascular Exam: Present: regular rate, normal rhythm, normal heart sounds. Absent: systolic murmur, diastolic murmur Extremities exam: Present: normal inspection, full ROM. Absent: tenderness Back exam: Present: normal inspection, full ROM. Absent: tenderness Neurological exam: Present: alert, oriented X3, normal gait Psychiatric exam: Present: anxious, suicidal ideation Skin exam: Present: warm, dry, intact, normal color Course Vital Signs 02/17/21 20:17 Temperature 97.9 F Pulse Rate 90 Respiratory 18 Rate Blood Pressure 105/66 O2 Sat by Pulse 100 Oximetry Medical Decision Making - Medical Decision Making 50-year-old female presents to the emergency department for psychiatric evaluation. On physical examination, patient appeared to be quite emotional and crying during most of the encounter. Patient also appears to have dry sockets in the left upper and lower region. She went to a course of azithromycin with no improvement of symptoms. I will start her on clindamycin 300 mg. She did not have any homicidal thoughts or ideations. Urine drug screen only positive for benzodiazepines. EPS evaluated the patient and will admit for further psychiatric management. - Lab Data Lab Results 02/17/21 Range/Units 21:04 Urine Opiates Screen Not Detected (NotDetected) Ur Oxycodone Screen Not Detected (NotDetected) Urine Methadone Screen Not Detected (NotDetected) Ur Propoxyphene Screen Not Detected (NotDetected) Ur Barbiturates Screen Not Detected (NotDetected) U Tricyclic Antidepress Not Detected (NotDetected) Ur Phencyclidine Scrn Not Detected (NotDetected) Ur Amphetamines Screen Not Detected (NotDetected) U Methamphetamines Scrn Not Detected (NotDetected) U Benzodiazepines Scrn Detected H (NotDetected) Urine Cocaine Screen Not Detected (NotDetected) U Marijuana (THC) Screen Not Detected (NotDetected) Disposition Clinical Impression: Adjustment reaction of adult life Disposition: ADMITTED IP TO THIS HOSP Condition: Fair Is patient prescribed a controlled substance at d/c from ED?: No Referrals: Daniel Randolph DO [Primary Care Provider] - 1-2 days Time of Disposition: 00:05
[2021-02-17] MEDS ORDERED: CLINDAMYCIN 150 MG CAP PO STA (22:21)
[2021-02-18] MEDS ORDERED: MAGNESIUM HYDROXIDE 2,400 MG/10 ML CUP PO PRN (00:53)
[2021-02-18] MEDS ORDERED: LORazepam 1 MG TAB PO PRN (00:53)
[2021-02-18] MEDS ORDERED: ACETAMINOPHEN TAB 325 MG TAB PO PRN (00:53)
[2021-02-18] MEDS ORDERED: LORazepam 2 MG/ML INJ IM PRN (00:57)
[2021-02-18] MEDS ORDERED: HALOPERIDOL LACTATE 5 MG/ML 1 ML VIAL IM PRN (00:58)
[2021-02-18] MEDS ORDERED: haloperidoL 5 MG TAB PO PRN (00:58)
[2021-02-18] MEDS ORDERED: MAG HYDROX/AL HYDROX/SIMETH 30 ML CUP PO PRN (01:00)
[2021-02-18] MEDS: IBUPROFEN 800 MG TAB PO PRN ×2 (02:12→18:42)
[2021-02-18] MEDS: LEVOTHYROXINE 50 MCG TAB PO SCH (06:32)
[2021-02-18] MEDS ORDERED: NICOTINE 14MG/24HR PATCH TRANSDERM SCH (09:00)
--- NOTE | 2021-02-18 10:23 | P.CONS ---
History of Present Illness - Reason for Consult Consult date: 02/18/21 Medical management - History of Present Illness This is a 50-year-old white female who reported to the hospital for worsening depression. She has been tapered off Cymbalta gradually. Patient's mother recently and patient has been under emotional stress. She denies chest pain, no abdominal pain, no nausea or vomiting Review of Systems 10 systems reviewed, pertinent positive and negative findings as in HPI, no chest pain, no abdominal pain. Past Medical History Past Medical History: Diabetes Mellitus, Fibromyalgia, GERD/Reflux, Sleep Apnea/CPAP/BIPAP, Thyroid Disorder Additional Past Medical History / Comment(s): diet control diabetic. migraines, arthritis History of Any Multi-Drug Resistant Organisms: None Reported Past Surgical History: Section, Orthopedic Surgery, Tubal Ligation Additional Past Surgical History / Comment(s): rt knee scope. bilat foot sx Past Anesthesia/Blood Transfusion Reactions: Motion Sickness, Postoperative Nausea & Vomiting (PONV) Past Psychological History: Anxiety, Depression, Panic Disorder Smoking Status: Never smoker Past Alcohol Use History: None Reported Past Drug Use History: Marijuana - Past Family History Mother Family Medical History: Deep Vein Thrombosis (DVT) Medications and Allergies Home Medications Medication Instructions Recorded Confirmed Type ALPRAZolam [Xanax] 1 mg PO TID PRN 01/18/18 11/10/18 History DULoxetine HCL [Cymbalta] 90 mg PO HS 01/18/18 11/10/18 History Ibuprofen [Motrin] 800 mg PO TID PRN 01/18/18 11/10/18 History Cyclobenzaprine [Flexeril] 10 mg PO TID PRN 11/10/18 11/10/18 History Levothyroxine Sodium [Synthroid] 50 mcg PO DAILY 11/10/18 11/12/18 History Allergies Allergy/AdvReac Type Severity Reaction Status Date / Time Iodinated Contrast Media Allergy Rash/Hives Verified 02/17/21 20:16 [Iodinated Contrast Media - IV Dye] loracarbef [From Lorabid] Allergy Nausea & Verified 02/17/21 20:16 Vomiting Penicillins Allergy Rash/Hives Verified 02/17/21 20:16 sulfamethoxazole Allergy Rash/Hives Verified 02/17/21 20:16 [From Bactrim] trimethoprim [From Bactrim] Allergy Rash/Hives Verified 02/17/21 20:16 bupropion [From Wellbutrin] AdvReac Itching Verified 02/17/21 20:16 codeine AdvReac Vomiting Verified 02/17/21 20:16 Physical Exam Vitals: Vital Signs Temp Pulse Pulse Resp BP BP Pulse Ox 02/18/21 02:23 99.2 F 81 16 113/68 98 02/17/21 20:17 97.9 F 90 18 105/66 100 Intake and Output 02/17/21 02/18/21 02/18/21 22:59 06:59 14:59 Other: Weight 123.422 kg 122.6 kg Constitutional: No acute distress Eyes: Anicteric sclerae, moist conjunctiva, no lid-lag, PERRLA ENMT: NC/AT Neck:Supple Lungs: Clear to auscultation, Clear to percussion, Normal respiratory effort, no accessory muscle use Cardiovascular: Heart regular in rate and rhythm, No murmurs, gallops, or rubs no peripheral edema Abdominal: Soft Nontender, non distended, no guarding, no rebound or rigidity Skin: Normal temperature, tone, texture, turgor, No induration No subcutaneous nodules, No rash, lesions, No ulcers Extremities:No digital cyanosis No clubbing Psychiatric: Alert and oriented Neuro: Muscles Strength 5/5 in all 4 extremities, Sensation to light touch grossly present throughout, Cranial nerves II-XII grossly intact. No focal sensory deficits Results Labs: Abnormal Lab Results - Last 24 Hours (Table) 02/17/21 Range/Units 21:04 U Benzodiazepines Scrn Detected H (NotDetected) Assessment and Plan Plan: 1. Acute depression: Management per psychiatry, on Cymbalta and Haldol 2. Recent dental extraction: On Zithromax 3. Hypothyroidism: On Synthroid 4. Anxiety: On benzos 5. Obstructive sleep apnea: Not on CPAP 6. Morbid obesity: BMI 49.4 Thank you for the consultation.
--- NOTE | 2021-02-18 12:06 | P.HP ---
Psychiatric H&P - . H&P Date: 02/18/21 History & Physical: Allergies Allergy/AdvReac Type Severity Reaction Status Date / Time Iodinated Contrast Media Allergy Rash/Hives Verified 02/17/21 20:16 Iodinated Contrast Media - IV Dye loracarbef From Lorabid Allergy Nausea & Verified 02/17/21 20:16 Vomiting Penicillins Allergy Rash/Hives Verified 02/17/21 20:16 sulfamethoxazole Allergy Rash/Hives Verified 02/17/21 20:16 From Bactrim trimethoprim From Bactrim Allergy Rash/Hives Verified 02/17/21 20:16 bupropion From Wellbutrin AdvReac Itching Verified 02/17/21 20:16 codeine AdvReac Vomiting Verified 02/17/21 20:16 Vital Signs Temp 99.2 F 02/18/21 02:23 Pulse 81 02/18/21 02:23 Resp 16 02/18/21 02:23 BP 113/68 02/18/21 02:23 Pulse Ox 98 02/18/21 02:23 Intake & Output 02/17/21 02/18/21 02/18/21 18:59 06:59 18:59 Weight 122.6 kg Laboratory Last Values Urine Opiates Screen Not Detected (NotDetected) 02/17/21 21:04 Ur Oxycodone Screen Not Detected (NotDetected) 02/17/21 21:04 Urine Methadone Screen Not Detected (NotDetected) 02/17/21 21:04 Ur Propoxyphene Screen Not Detected (NotDetected) 02/17/21 21:04 Ur Barbiturates Screen Not Detected (NotDetected) 02/17/21 21:04 U Tricyclic Antidepress Not Detected (NotDetected) 02/17/21 21:04 Ur Phencyclidine Scrn Not Detected (NotDetected) 02/17/21 21:04 Ur Amphetamines Screen Not Detected (NotDetected) 02/17/21 21:04 U Methamphetamines Scrn Not Detected (NotDetected) 02/17/21 21:04 U Benzodiazepines Scrn Detected (NotDetected) H 02/17/21 21:04 Urine Cocaine Screen Not Detected (NotDetected) 02/17/21 21:04 U Marijuana (THC) Screen Not Detected (NotDetected) 02/17/21 21:04 Coronavirus (PCR) Not Detected (Not Detectd) 02/18/21 00:04 02/18/21 12:00 IDENTIFYING DATA: Patient is a 50-year-old female who currently lives with her in a house is currently unemployed and has 2 kids. HPI: Patient presented to the hospital yesterday for a psychiatric evaluation. Patient apparently stated according the ER that she was tapering herself off of Cymbalta and was recently started on trintellix for her depression and anxiety however states that she has not been seeing any changes. She states that her mother had last year and that her stepfather was removing the belongings. She stated in the car that she was having a "mental breakdown". She states that she wanted to "crash the car and ". She was found at a cemetery where her father was buried and was brought into the hospital. Patient has a UDS was positive for benzodiazepines. Patient was seen today and agreeable to seek to expert medical writer. She was tearful and appeared to have a depressed affect. She spoke about her mother and began crying. She claims that her stepfather is not very understanding and has been giving away her things. She states that she has been off of her Cymbalta for months now as she slowly tapered herself off because she felt "dehydrated all the time". She states that she was angry and screaming when he found out that he gave away her mother's things to her stepsister. She states that she feels very "uncomfortable around him". She claims that she has poor sleep and fair appetite.. Patient denies any suicidal or homicidal ideations intent or plan. At this time patient denies any auditory or visual hallucinations. Patient denies any flight of ideas racing thoughts and increased in goal directed behavior. Patient admits to using no recreational drugs PAST PSYCHIATRIC HISTORY: Patient states that she has a history of depression and anxiety. She was previously on Cymbalta and Xanax in the past. She states that she was previously psychiatrically hospitalized in the early s twice at the hospital and also was in the partial hospitalization program back then. Patient denies any psychiatric outpatient follow-up. Patient denies any history of suicide attempts in the past. PMH: Thyroid disorder, diabetes mellitus, GERD, fibromyalgia, obstructive sleep apnea, migraines ALLERGIES: as per EMR CHEMICAL DEPENDENCY HISTORY: as per HPI FAMILY PSYCHIATRIC/SUBSTANCE USE HISTORY: Mother suffered from depression and anxiety SOCIAL HISTORY: Patient was born and raised in [facility]. She states that she completed high school and no college. 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 She states that she currently lives with her and 2 kids and is unemployed. MENTAL STATUS EXAM: General Appearance: Patient appears to be obese, stated age is alert, directable, and attempts to cooperate. Tearful. Patient appears to have poor hygiene and grooming. Behavior: Patient is seated without any agitated behavior. Tearful and irritable at times Speech: Patient's speech is fluent and nonpressured. Mood/Affect: Patient reports their mood is depressed and anxious, affect is congruent Suicidality/Homicidality: Patient denies having any homicidal ideation intent or plan. Denies any suicidal ideations intent or plan Perceptions: Patient denies any visual hallucinations and denies any auditory hallucinations Though content/process: There is no evidence of any delusional thought content and thought process is linear and goal-directed. Perseverates on her mother. Memory and concentration: AOX3, grossly intact for the purposes of this session. Can spell "WORLD" backwards Judgment and insight: poor STRENGTHS/WEAKNESSES: strength is that patient is resilient. Weakness is that patient has poor judgment and is impulsive INTELLECT: average IMPRESSIONS: Major depressive disorder, recurrent, severe without psychotic features Anxiety disorder unspecified PLAN: -Patient is admitted under voluntary status to [facility] for stabilization of psychiatric symptoms and safety. Patient has signed adult voluntary form and medication consent and is placed in patient's chart. -Medications : Will start patient on Zoloft 50 mg daily for mood/anxiety. Trazodone 50 mg daily at bedtime for mood/insomnia. -Ativan and Haldol PRN for agitation/aggression -Patient was informed of the risks, benefits and side effects of the medication and patient verbally consented to taking the medications. Patient signed med consent form and was placed in chart. -Internal Medicine consult to perform medical evaluation and physical. -NRT - none needed as patient does not smoke -SW on board for discharge planning. Encourage patient to participate in groups to work on coping skills.
[2021-02-18] MEDS: SERTRALINE 50 MG TAB PO SCH (12:13)
[2021-02-18] MEDS ORDERED: DULoxetine HCL 30 MG CAPSULE.DR PO SCH (21:00)
[2021-02-18] MEDS: ERYTHROMYCIN 250 MG TAB PO SCH (21:58)
[2021-02-18] MEDS: traZODone HCL 50 MG TAB PO SCH (21:58)
[2021-02-19] MEDS: LEVOTHYROXINE 50 MCG TAB PO SCH ×2 (06:56→06:59)
[2021-02-19 07:37] LABS: Anisocytosis Slight; Basophils % (A) 0 %; Eosinophils # (A) 0.5 k/uL (0-0.7); Eosinophils % (A) 5 %; HCT 37.7 % (34.0-46.0); HGB 11.9 gm/dL (11.4-16.0); Hypochromasia Slight; Lymphocytes # (A) 4.4 k/uL (1.0-4.8); Lymphocytes % (A) 38 %; MCH 26.4 pg (25.0-35.0); MCHC 31.7 g/dL (31.0-37.0); MCV 83.4 fL (80.0-100.0); Mean Platelet Volume 6.9; Monocytes # (A) 0.5 k/uL (0-1.0); Monocytes % (A) 5 %; Neutrophils # (A) 5.9 k/uL (1.3-7.7); Neutrophils % (A) 52 %; Platelet Count 359 k/uL (150-450); RBC 4.51 m/uL (3.80-5.40); RDW 16.9 % (11.5-15.5); WBC 11.5 k/uL (3.8-10.6)
[2021-02-19 07:51] LABS: ALT 13 U/L (4-34); AST 23 U/L (14-36); African American GFR (CKD) >90 (>60 ml/min/1.73 sqM); Albumin 3.8 g/dL (3.5-5.0); Alkaline Phosphatase 87 U/L (38-126); Anion Gap 5 mmol/L; Blood Urea Nitrogen 14 mg/dL (7-17); Calcium 9.2 mg/dL (8.4-10.2); Carbon Dioxide 26 mmol/L (22-30); Chloride 107 mmol/L (98-107); Cholesterol 232 mg/dL (<200); Glucose 94 mg/dL (74-99); HDL Cholesterol 82 mg/dL (40-60); LDL Cholesterol,Calculated 133 mg/dL (0-99); Non-African American GFR(CKD) >90 (>60 ml/min/1.73 sqM); Potassium 5.1 mmol/L (3.5-5.1); Sodium 138 mmol/L (137-145); Total Bilirubin 0.4 mg/dL (0.2-1.3); Total Protein 6.8 g/dL (6.3-8.2); Triglycerides 83 mg/dL (<150)
[2021-02-19] MEDS: SERTRALINE 50 MG TAB PO SCH (08:56)
[2021-02-19] MEDS: ERYTHROMYCIN 250 MG TAB PO SCH ×2 (08:56→21:11)
[2021-02-19] MEDS: IBUPROFEN 800 MG TAB PO PRN (08:59)
--- NOTE | 2021-02-19 09:32 | P.PN ---
Progress Note - Text Progress Note Date: 02/19/21 Interval History: Patient was seen sitting on her bed this morning and was directable and agreea ble to speak with technical writer and editor in the office. Patient claims that she is doing better overall in terms her mood and anxiety. She states that she still feels angry at her stepdad however states that she talk with her daughter over the phone who will be speaking with the stepdad and going over to his house to cook pickled meat more of her mom's things. She states that this has helped make her feel more positive about the situation. She states that she had a difficult time sleeping last night and claims that she was having restless leg symptoms and also had a difficulty initiating sleep. She states that she has a off SLEEP schedule at home. She states that she has been trying to go to groups. She appears to be more future oriented today. At this time patient denies any suicidal or homical ideations, intent or plan. Patient denies any auditory, visual hallucinations and denies any paranoia or delusions. Patient denies any side effects from the medications and has been compliant with meds. Mental Status Exam: General Appearance: Patient appears to be obese, stated age is alert, directable, and attempts to cooperate. Patient appears to have improving hygiene and grooming. Behavior: Patient is seated without any agitated behavior. More cooperative today. Not irritable Speech: Patient's speech is fluent and nonpressured. Mood/Affect: Patient reports their mood is depressed and anxious, affect is congruent Suicidality/Homicidality: Patient denies having any homicidal ideation intent or plan. Denies any suicidal ideations intent or plan Perceptions: Patient denies any visual hallucinations and denies any auditory hallucinations Though content/process: There is no evidence of any delusional thought content and thought process is linear and goal-directed. Perseverates on her mother. Memory and concentration: AOX3, grossly intact for the purposes of this session. Judgment and insight: improving mildly Assessment Major depressive disorder, recurrent, severe without psychotic features Anxiety disorder unspecified Plan: -Patient continues to meet criteria for inpatient psychiatric admission for symptom stabilization and safety. Patient has signed adult voluntary form and medication consent and was placed in patient's chart. -Medications: We'll continue with Zoloft 50 mg daily/anxiety, trazodone 50 mg daily at bedtime for mood/insomnia. Added melatonin 5 mg daily at bedtime for sleep. Also added Requip 0.25 mg daily at bedtime for restless leg symptoms -When necessary Ativan and Haldol for agitation/aggression. -NRT - not needed as patient does not smoke -SW on board for discharge planning. Encouraged the patient to participate in milieu. If patient does well today and overnight likely discharge back home tomorrow.
[2021-02-19 16:26] LABS: Hemoglobin A1C 5.9 % (4.0-6.0)
[2021-02-19] MEDS ORDERED: MELATONIN 5 MG TABLET PO SCH (21:00)
[2021-02-19] MEDS: traZODone HCL 50 MG TAB PO SCH (21:11)
[2021-02-20] MEDS: LEVOTHYROXINE 50 MCG TAB PO SCH (06:58)
[2021-02-20 07:02] VITALS: BP 103/51; PULSE 76; RESP 16; TEMP 97.1
[2021-02-20] MEDS: ERYTHROMYCIN 250 MG TAB PO SCH (08:52)
[2021-02-20] MEDS: IBUPROFEN 800 MG TAB PO PRN (08:52)
[2021-02-20] MEDS: SERTRALINE 50 MG TAB PO SCH (08:52)
--- NOTE | 2021-02-20 09:11 | P.DS ---
Providers Date of admission: 02/18/21 00:37 Expected date of discharge: 02/20/21 Attending physician: Bello Samuels MD Consults: 02/18/21 00:53 Consult Physician Routine Consulting Provider: Shara Physician Consult Reason/Comments: h and p Do you want consulting provider notified?: Yes Primary care physician: Daniel Randolph - Discharge Diagnosis(es) (1) Major depressive disorder without psychotic features Current Visit: Yes Status: Acute Priority: High (2) Anxiety disorder, unspecified Current Visit: Yes Status: Acute Priority: Medium Hospital Course: Admission HPI: Admission note was completed by expert medical writer " Patient is a 50-year-old female who currently lives with her in a house is currently unemployed and has 2 kids. Patient presented to the hospital yesterday for a psychiatric evaluation. Patient apparently stated according the ER that she was tapering herself off of Cymbalta and was recently started on trintellix for her depression and anxiety however states that she has not been seeing any changes. She states that her mother had last year and that her stepfather was removing the belongings. She stated in the car that she was having a "mental breakdown". She states that she wanted to "crash the car and ". She was found at a cemetery where her father was buried and was brought into the hospital. Patient has a UDS was positive for benzodiazepines. Patient was seen today and agreeable to seek to expert medical writer. She was tearful and appeared to have a depressed affect. She spoke about her mother and began crying. She claims that her stepfather is not very understanding and has been giving away her things. She states that she has been off of her Cymbalta for months now as she slowly tapered herself off because she felt "dehydrated all the time". She states that she was angry and screaming when he found out that he gave away her mother's things to her stepsister. She states that she feels very "uncomfortable around him". She claims that she has poor sleep and fair appetite. Patient denies any suicidal or homicidal ideations intent or plan. At this time patient denies any auditory or visual hallucinations. Patient denies any flight of ideas racing thoughts and increased in goal directed behavior. Patient admits to using no recreational drugs" Hospital course: Upon admission to the unit patient was initially depressed and anxious. Patient was however directable and agreeable to commence treatment and signed adult voluntary form. Patient got along well with other patients on the unit and followed unit protocol. Patient was compliant with the medications and denied any side effects throughout hospital course. Patient was started on Zoloft 50 mg daily for mood/anxiety. Patient was also started on trazodone 50 mg daily at bedtime for mood/insomnia. Patient was having restless leg symptoms therefore was started on Requip 0.25 mg daily at bedtime and also melatonin 5 mg nightly f or sleep. Patient spoke of her stressors and engaged in therapy both group and individual. Patient was also seen by medical team for history and physical exam. Patient had ongoing tooth pain and states that she was having "dry socket" and was therefore placed on antibiotic during her hospitalization and will be following up with her dentist post discharge. Throughout the course of the hospitalization patient gradually improved with regards to mood, anxiety, sleep and became more future oriented with improved insight and judgment. On the day of discharge patient denied any suicidal or homicidal ideations intent or plan denied any auditory or visual hallucinations. Patient endorsed wanting to live for her health and family. The patient denied any access to guns or weapons. Patient denied any paranoia and did not endorse any delusions. Patient does not have a significant history of substance abuse however was counseled on abstaining from all substances including alcohol and marijuana. Patient was also counseled on the medications and need for regular compliance and was encouraged to follow-up with their outpatient appointment for mental health and also for primary care. Prior to discharge a family meeting will be arranged by manager social media to answer any questions and ensure safety upon discharge. Mental status exam: General Appearance: Patient appears to be obese, stated age is alert, pleasant, and cooperative. Patient is in no acute distress and has improved hygiene and grooming Behavior: Patient is calmly seated without any agitated behavior. Speech: Patient's speech is fluent and nonpressured. Mood/Affect: Patient reports their mood is "better", affect is congruent and euthymic. Suicidality/Homicidality: Patient denies having any suicidal or homicidal ideation intent or plan. Perceptions: Patient denies any auditory or visual hallucinations. Though content/process: There is no evidence of any delusional thought content and thought process is linear and goal-directed. more future oriented Memory and concentration: AOX3, grossly intact for the purposes of this session. Can spell "WORLD" backwards correctly. Judgment and insight: improved with guarded prognosis Impression: Major depressive disorder, recurrent, severe without psychotic features Anxiety disorder unspecified Plan: -Continue with discharge today as patient has improved and stabilized psychiatrically and is not currently an imminent threat to herself and/or others. -Continue medications: Zoloft 50 mg daily for mood/anxiety, trazodone 50 mg daily at bedtime for mood/insomnia, melatonin 5 mg daily at bedtime for sleep, Requip 0.25 mg daily at bedtime for restless leg symptoms -Patient was counseled on the need for medication compliance and appropriate follow-up at mental health and also primary care for medical issues. Patient verbalized understanding and agreed. -Social work to arrange for and conduct family meeting to ensure safety upon discharge and answer any questions/concerns. Social work also to arrange for patients follow up appointments with [facility] for psychiatric care along with follow up with primary care provider. -Patient counseled on abstaining from recreational drugs and marijuana and alcohol. Was informed/educated on the adverse effects on their physical and mental health. Patient verbally agreed and understood. -Patient was instructed to return to the hospital or seek immediate medical care if their psychiatric or medical symptoms do worsen or reoccur. Allergies Allergy/AdvReac Type Severity Reaction Status Date / Time Iodinated Contrast Media Allergy Rash/Hives Verified 02/17/21 20:16 [Iodinated Contrast Media - IV Dye] loracarbef [From Lorabid] Allergy Nausea & Verified 02/17/21 20:16 Vomiting Penicillins Allergy Rash/Hives Verified 02/17/21 20:16 sulfamethoxazole Allergy Rash/Hives Verified 02/17/21 20:16 [From Bactrim] trimethoprim [From Bactrim] Allergy Rash/Hives Verified 02/17/21 20:16 bupropion [From Wellbutrin] AdvReac Itching Verified 02/17/21 20:16 codeine AdvReac Vomiting Verified 02/17/21 20:16 Laboratory Results WBC 11.5 k/uL (3.8-10.6) H 02/19/21 07:02 RBC 4.51 m/uL (3.80-5.40) 02/19/21 07:02 Hgb 11.9 gm/dL (11.4-16.0) 02/19/21 07:02 Hct 37.7 % (34.0-46.0) 02/19/21 07:02 MCV 83.4 fL (80.0-100.0) 02/19/21 07:02 MCH 26.4 pg (25.0-35.0) 02/19/21 07:02 MCHC 31.7 g/dL (31.0-37.0) 02/19/21 07:02 RDW 16.9 % (11.5-15.5) H 02/19/21 07:02 Plt Count 359 k/uL (150-450) 02/19/21 07:02 MPV 6.9 02/19/21 07:02 Neutrophils % 52 % 02/19/21 07:02 Lymphocytes % 38 % 02/19/21 07:02 Monocytes % 5 % 02/19/21 07:02 Eosinophils % 5 % 02/19/21 07:02 Basophils % 0 % 02/19/21 07:02 Neutrophils # 5.9 k/uL (1.3-7.7) 02/19/21 07:02 Lymphocytes # 4.4 k/uL (1.0-4.8) 02/19/21 07:02 Monocytes # 0.5 k/uL (0-1.0) 02/19/21 07:02 Eosinophils # 0.5 k/uL (0-0.7) 02/19/21 07:02 Basophils # 0.0 k/uL (0-0.2) 02/19/21 07:02 Hypochromasia Slight 02/19/21 07:02 Anisocytosis Slight 02/19/21 07:02 Sodium 138 mmol/L (137-145) 02/19/21 07:02 Potassium 5.1 mmol/L (3.5-5.1) 02/19/21 07:02 Chloride 107 mmol/L (98-107) 02/19/21 07:02 Carbon Dioxide 26 mmol/L (22-30) 02/19/21 07:02 Anion Gap 5 mmol/L 02/19/21 07:02 BUN 14 mg/dL (7-17) 02/19/21 07:02 Creatinine 0.74 mg/dL (0.52-1.04) 02/19/21 07:02 Est GFR (CKD-EPI)AfAm >90 (>60 ml/min/1.73 sqM) 02/19/21 07:02 Est GFR (CKD-EPI)NonAf >90 (>60 ml/min/1.73 sqM) 02/19/21 07:02 Glucose 94 mg/dL (74-99) 02/19/21 07:[address] Glu mg/dL 123 02/19/21 07:02 Hemoglobin A1c 5.9 % (4.0-6.0) 02/19/21 07:02 Calcium 9.2 mg/dL (8.4-10.2) 02/19/21 07:02 Total Bilirubin 0.4 mg/dL (0.2-1.3) 02/19/21 07:02 AST 23 U/L (14-36) 02/19/21 07:02 ALT 13 U/L (4-34) 02/19/21 07:02 Alkaline Phosphatase 87 U/L (38-126) 02/19/21 07:02 Total Protein 6.8 g/dL (6.3-8.2) 02/19/21 07:02 Albumin 3.8 g/dL (3.5-5.0) 02/19/21 07:02 Triglycerides 83 mg/dL (<150) 02/19/21 07:02 Cholesterol 232 mg/dL (<200) H 02/19/21 07:02 LDL Cholesterol, Calc 133 mg/dL (0-99) H 02/19/21 07:02 HDL Cholesterol 82 mg/dL (40-60) H 02/19/21 07:02 TSH 3.620 mIU/L (0.465-4.680) 02/19/21 07:02 Urine Opiates Screen Not Detected (NotDetected) 02/17/21 21:04 Ur Oxycodone Screen Not Detected (NotDetected) 02/17/21 21:04 Urine Methadone Screen Not Detected (NotDetected) 02/17/21 21:04 Ur Propoxyphene Screen Not Detected (NotDetected) 02/17/21 21:04 Ur Barbiturates Screen Not Detected (NotDetected) 02/17/21 21:04 U Tricyclic Antidepress Not Detected (NotDetected) 02/17/21 21:04 Ur Phencyclidine Scrn Not Detected (NotDetected) 02/17/21 21:04 Ur Amphetamines Screen Not Detected (NotDetected) 02/17/21 21:04 U Methamphetamines Scrn Not Detected (NotDetected) 02/17/21 21:04 U Benzodiazepines Scrn Detected (NotDetected) H 02/17/21 21:04 Urine Cocaine Screen Not Detected (NotDetected) 02/17/21 21:04 U Marijuana (THC) Screen Not Detected (NotDetected) 02/17/21 21:04 Coronavirus (PCR) Not Detected (Not Detectd) 02/18/21 00:04 Vital Signs Temp 97.1 F L 02/20/21 07:02 Pulse 76 02/20/21 07:02 Resp 16 02/20/21 07:02 BP 103/51 02/20/21 07:02 Pulse Ox 98 02/19/21 09:00 Patient Condition at Discharge: Stable Plan - Discharge Summary Discharge Rx Participant: No New Discharge Prescriptions: New Erythromycin [Laurent-Tab] 500 mg PO Q12H 5 Days tab traZODone HCL [Desyrel] 50 mg PO HS 30 Days tab Melatonin 5 mg PO HS 30 Days tablet rOPINIRole HCL [Requip] 0.25 mg PO HS 30 Days tab Sertraline [Zoloft] 50 mg PO DAILY 30 Days tab Continue Ibuprofen [Motrin] 800 mg PO TID PRN PRN Reason: Pain Cyclobenzaprine [Flexeril] 10 mg PO TID PRN PRN Reason: Spasms Discontinued DULoxetine HCL [Cymbalta] 90 mg PO HS ALPRAZolam [Xanax] 1 mg PO TID PRN PRN Reason: Anxiety Levothyroxine Sodium [Synthroid] 50 mcg PO DAILY Discharge Medication List Ibuprofen [Motrin] 800 mg PO TID PRN 01/18/18 [History] Cyclobenzaprine [Flexeril] 10 mg PO TID PRN 11/10/18 [History] Erythromycin [Laurent-Tab] 500 mg PO Q12H 5 Days tab 02/20/21 [Rx] Melatonin 5 mg PO HS 30 Days tablet 02/20/21 [Rx] Sertraline [Zoloft] 50 mg PO DAILY 30 Days tab 05/19/21 [Rx] rOPINIRole HCL [Requip] 0.25 mg PO HS 30 Days tab 02/20/21 [Rx] traZODone HCL [Desyrel] 50 mg PO HS 30 Days tab 02/20/21 [Rx] Follow up Appointment(s)/Referral(s): [facility] - 02/25/21 12:30 pm (Chantell Harding ) Daniel Randolph DO [Primary Care Provider] - 1-2 days Activity/Diet/Wound Care/Special Instructions: Activity and diet as tolerated. Avoid the use of street drugs and alcohol. Take all medications as prescribed. When you are in need of refills on your medications please contact your medical provider and/or outpatient psychiatrist to have this done. Please go to scheduled outpatient appointment for aftercare treatment. If symptoms return or become worse, call the crisis line at and/or go to the nearest emergency room for evaluation. Discharge Disposition: HOME SELF-CARE
== END 2021-02-20 10:43 | disposition home or self-care (01) | DRG 885 ==
LOC: EC 20:14 → 3MHU 02-18 00:37
PROVIDERS: ADMIT Psychiatry & Neurology Psychiatry; ATTEND Psychiatry & Neurology Psychiatry
DX: F33.2 Major depressive disorder, recurrent severe without psychotic features (principal); F43.20 Adjustment disorder, unspecified; E11.9 Type 2 diabetes mellitus without complications; F41.0 Panic disorder [episodic paroxysmal anxiety]; G25.81 Restless legs syndrome; G47.00 Insomnia, unspecified; K08.89 Other specified disorders of teeth and supporting structures; M79.7 Fibromyalgia; Z79.890 Hormone replacement therapy; Z79.899 Other long term (current) drug therapy; Z20.822 Contact with and (suspected) exposure to COVID-19
CPT/HCPCS: 80053; 80061; 80306; 82075; 83036; 84443; 85025; 87635; 99285

== ENCOUNTER 2021-06-04 07:52 | Day surgery (SDC) | payer OTHER ==
[2021-05-30 15:44] VITALS: BMI 49.4
[2021-06-04 08:19] VITALS: TEMP 98.3
[2021-06-04] MEDS ORDERED: ONDANSETRON 4 MG/2 ML VIAL ONE (08:28)
[2021-06-04] MEDS ORDERED: ONDANSETRON 4 MG/2 ML VIAL IVP ONE (08:34)
[2021-06-04] MEDS ORDERED: LACTATED RINGERS 1,000 ML IV ONE ×2 (08:34)
[2021-06-04] MEDS ORDERED: PROPOFOL 10 MG/ML 20 ML VIAL IV ONE (08:36)
--- NOTE | 2021-06-04 08:41 | P.GSHP ---
History of Present Illness H&P Date: 06/04/21 Chief Complaint: Change in bowel habits, history of polyps 50-year-old female here today for colonoscopy. Last colonoscopy 5-10 years ago. Patient with history of colon polyps. Patient has intermittent diarrhea and constipation. No rectal bleeding. Family history of colon cancer in her mother. Past Medical History Past Medical History: Diabetes Mellitus, Fibromyalgia, GERD/Reflux, Osteoarthritis (OA), Sleep Apnea/CPAP/BIPAP, Thyroid Disorder Additional Past Medical History / Comment(s): diet control diabetic. migraines, BACK PAIN- sciatic issues, C PAP MACHINE - USES SOMETIMES History of Any Multi-Drug Resistant Organisms: None Reported Past Surgical History: Section, Orthopedic Surgery, Tubal Ligation Additional Past Surgical History / Comment(s): rt knee ARTHROSCOPIC ,BILATERAL GREAT TOE- NAIL REMOVED. bilat foot sx Past Anesthesia/Blood Transfusion Reactions: Motion Sickness, Postoperative Nausea & Vomiting (PONV) Smoking Status: Never smoker - Past Family History Mother Family Medical History: Cancer, Deep Vein Thrombosis (DVT) Additional Family Medical History / Comment(s): COLON CANCER Medications and Allergies Home Medications Medication Instructions Recorded Confirmed Type Ibuprofen [Motrin] 800 mg PO TID PRN 01/18/18 06/04/21 History Cyclobenzaprine [Flexeril] 10 mg PO TID PRN 11/10/18 06/04/21 History Sertraline [Zoloft] 50 mg PO DAILY 30 Days tab 02/20/21 05/30/21 Rx rOPINIRole HCL [Requip] 0.25 mg PO HS 30 Days tab 02/20/21 05/30/21 Rx traZODone HCL [Desyrel] 50 mg PO HS 30 Days tab 02/20/21 05/30/21 Rx ALPRAZolam [Xanax] 1 mg PO BID PRN 05/30/21 06/04/21 History Melatonin 10 mg PO HS 05/30/21 05/30/21 History traMADol HCL [Ultram] 50 mg PO Q4-6H PRN 05/30/21 05/30/21 History Allergies Allergy/AdvReac Type Severity Reaction Status Date / Time Iodinated Contrast Media Allergy Rash/Hives Verified 06/04/21 08:22 [Iodinated Contrast Media - IV Dye] loracarbef [From Lorabid] Allergy Nausea & Verified 06/04/21 08:22 Vomiting Penicillins Allergy Rash/Hives Verified 06/04/21 08:22 sulfamethoxazole Allergy Rash/Hives Verified 06/04/21 08:22 [From Bactrim] trimethoprim [From Bactrim] Allergy Rash/Hives Verified 06/04/21 08:22 bupropion [From Wellbutrin] AdvReac Itching Verified 06/04/21 08:22 codeine AdvReac Vomiting Verified 06/04/21 08:22 Surgical - Exam Vital Signs Temp Pulse Resp BP Pulse Ox 98.3 F 77 16 143/72 97 06/04/21 08:17 06/04/21 08:17 06/04/21 08:17 06/04/21 08:17 06/04/21 08:17 Physical exam: General: Well-developed, well-nourished HEENT: Normocephalic, sclerae nonicteric Abdomen: Nontender, nondistended Extremities: No edema Neuro: Alert and oriented Assessment and Plan (1) Change in bowel habits Narrative/Plan: Will proceed with colonoscopy Current Visit: Yes Status: Acute Code(s): R19.4 - CHANGE IN BOWEL HABIT SNOMED Code(s): 600582781
--- NOTE | 2021-06-04 08:51 | P.PCN ---
Date of Procedure: 06/04/21 Procedure(s) Performed: PREOPERATIVE DIAGNOSIS: History of colon polyps, change in bowel habits, family history of colon cancer POSTOPERATIVE DIAGNOSIS: Normal exam PROCEDURE: Colonoscopy ANESTHESIA: MAC SURGEON: Dedrick Sun M.D. SPECIMENS: None ENDOSCOPIC PROCEDURE: The patient was placed on the endoscopy table in the left decubitus position. The Olympus colonoscope was inserted into the anus and passed under direct visualization to the base of the cecum. The appendiceal orifice was visualized. From that point the scope was slowly withdrawn inspecting all surfaces carefully. There were no neoplastic inflammatory or polypoid lesions throughout the cecum, ascending, transverse, descending, sigmoid and rectum. There was no visible diverticulosis noted. Digital rectal examination was normal. The patient was taken to the recovery room in stable condition per anesthesia guidelines. RECOMMENDATIONS: Resume diet. Follow colonoscopy 5 years.
[2021-06-04 08:56] VITALS: PULSE 75
[2021-06-04 09:12] VITALS: BP 116/76; RESP 16
== END 2021-06-04 09:32 | disposition home or self-care (01) ==
LOC: ORWHC2ENDO 07:52
PROVIDERS: ATTEND Surgery
DX: K59.00 Constipation, unspecified (principal); R19.7 Diarrhea, unspecified; Z86.010 Personal history of colon polyps; Z80.0 Family history of malignant neoplasm of digestive organs; Z80.9 Family history of malignant neoplasm, unspecified; E11.9 Type 2 diabetes mellitus without complications; M79.7 Fibromyalgia; K21.9 Gastro-esophageal reflux disease without esophagitis; M19.90 Unspecified osteoarthritis, unspecified site; G43.909 Migraine, unspecified, not intractable, without status migrainosus; Z79.899 Other long term (current) drug therapy; Z88.0 Allergy status to penicillin; Z88.2 Allergy status to sulfonamides; Z88.8 Allergy status to other drugs, medicaments and biological substances; Z91.041 Radiographic dye allergy status; G47.33 Obstructive sleep apnea (adult) (pediatric); E07.9 Disorder of thyroid, unspecified
CPT/HCPCS: 81025; 45378; J2405; J2704

== ENCOUNTER → 2021-08-20 | Outpatient (CLI) | payer OTHER ==
[2021-08-20 13:34] VITALS: BP 138/80; PULSE 78; TEMP 98.1; BMI 49.5
--- NOTE | 2021-08-20 15:23 | P.HPBAR ---
Bariatric H&P - History & Physicial H&P Date: 08/20/21 History & Physicial: Visit/CC: initial clinic visit Patient initial contact: Initial weight: Initial weight in pounds: Height: 5 ft 2.5 in Initial BMI: Last weight: Current weight: 124.738 kg Current weight in pounds: 275.00 Current BMI: 49.5 Harlan body weight (based on NIH guidelines): 51.029 kg Excess body weight loss: The patient is a 50 year-old F who presents for Bariatric Assessment. Patient presents to discuss surgical weight loss methods. Patient is interested in sleeve gastrectomy. Known to our service from a colonoscopy performed in May. Denies tobacco use. BMI 49. Comorbidities include chronic back pain and borderline hypertension asthma sleep apnea mild reflux fibromyalgia. Patient states she has history of hiatal hernia in the past. Denies history of DVT or dysphagia. Patient states she has almost completed her 6 month supervised weight loss. Review of Systems The patient denies any acute changes in vision or hearing, no dysphagia or odynophagia, no chest pain or shortness of breath, no dysuria or hematuria, no headache, no runny nose, no rectal bleeding or melena, no unexplained weight loss Past Medical History Past Medical History: Diabetes Mellitus, Fibromyalgia, GERD/Reflux, Sleep Apnea/CPAP/BIPAP, Thyroid Disorder Additional Past Medical History / Comment(s): diet control diabetic. migraines, arthritis, sciatic issues History of Any Multi-Drug Resistant Organisms: None Reported Past Surgical History: Section, Orthopedic Surgery, Tubal Ligation Additional Past Surgical History / Comment(s): rt knee scope. bilat foot sx Past Anesthesia/Blood Transfusion Reactions: Motion Sickness, Postoperative Nausea & Vomiting (PONV) Past Psychological History: Anxiety, Depression, Panic Disorder Smoking Status: Never smoker Past Alcohol Use History: None Reported Past Drug Use History: Marijuana Additional Drug Use History / Comment(s): uses marijuana candy - Past Family History Mother Family Medical History: Cancer, Deep Vein Thrombosis (DVT) Additional Family Medical History / Comment(s): COLON CANCER Surgical - Exam Vital Signs Temp Pulse BP 98.1 F 78 138/80 08/20/21 13:30 08/20/21 13:30 08/20/21 13:30 Physical exam: General: Well-developed, well-nourished HEENT: Normocephalic, sclerae nonicteric Abdomen: Nontender, nondistended Extremities: No edema Neuro: Alert and oriented Bariatric Assessment & Plan (1) Morbid obesity with BMI of 45.0-49.9, adult Narrative/Plan: 50-year-old female with morbid obesity and associated comorbidities. Patient is interested in sleeve gastrectomy. Risks, benefits, and expected weight loss of sleeve gastrectomy and gastric bypass discussed in detail. The risks of bleeding, infection, stenosis, stricture, leak, abscess, fistula formation, peritonitis, poor weight loss, reflux, vomiting, conversion to an open procedure, aborting sleeve gastrectomy, GA, PE, DVT, and were discussed. The patient understands and wishes to proceed. Will obtain documentation from supervised weight loss. Tentatively plan EGD in the next few months. Status: Acute Bariatric Checklist Checklist: Plan: Checklist: EGD: 1. Hiatal hernia: 2. H. Pylori: HgbA1c: Vitamin D: Smoking: Never smoker Primary care physician referral: Tomasa Psychiatry clearance: Cardiology clearance: Sleep study: Diet journal: VTE risk score: VTE risk level: Rehab needs at discharge:
== END ==
LOC: BARWHC3 12:57
PROVIDERS: ATTEND Surgery
DX: E66.01 Morbid (severe) obesity due to excess calories (principal); E11.9 Type 2 diabetes mellitus without complications; K21.9 Gastro-esophageal reflux disease without esophagitis; M19.90 Unspecified osteoarthritis, unspecified site; F32.9 Major depressive disorder, single episode, unspecified; F41.0 Panic disorder [episodic paroxysmal anxiety]; Z68.42 Body mass index [BMI] 45.0-49.9, adult; Z91.041 Radiographic dye allergy status; Z88.0 Allergy status to penicillin; Z88.2 Allergy status to sulfonamides; Z88.5 Allergy status to narcotic agent; Z88.8 Allergy status to other drugs, medicaments and biological substances
CPT/HCPCS: 99211

== ENCOUNTER 2021-09-01 13:44 | Emergency (ER) | payer OTHER ==
--- NOTE | 2021-09-01 16:07 | XR ---
EXAMINATION TYPE: XR chest 2V DATE OF EXAM: 09/01/2021 COMPARISON: NONE HISTORY: Cough and sore throat TECHNIQUE: 2 views FINDINGS: There is some mild linear density left midlung field. Heart and mediastinum are normal. Jeremy gs are clear of consolidation. There is no pleural effusion. Bony thorax appears intact. IMPRESSION: Minimal subsegmental atelectasis in the left midlung appears new compared to old exam. No rmal heart.
[2021-09-01] MEDS ORDERED: predniSONE 50 MG TAB PO STA (16:33)
--- NOTE | 2021-09-01 16:34 | ED ---
General Adult HPI - General Chief complaint: Upper Respiratory Infection Stated complaint: covid exposure Time Seen by Provider: 09/01/21 15:42 Source: patient Mode of arrival: ambulatory Limitations: no limitations - History of Present Illness Initial comments: 50-year-old female presents to the emergency room for a chief complaint of COVID-19 test. Patient has had a cough and congestion for 5 days now. Patient states it is worse at night. She feels a little short of breath. Denies chest pain. Denies fevers.Patient has no other complaints at this time including shortness of breath, chest pain, abdominal pain, nausea or vomiting, headache, or visual changes. - Related Data Home Medications Medication Instructions Recorded Confirmed Ibuprofen [Motrin] 800 mg PO TID PRN 01/18/18 06/04/21 Cyclobenzaprine [Flexeril] 10 mg PO TID PRN 11/10/18 06/04/21 ALPRAZolam [Xanax] 1 mg PO BID PRN 05/30/21 06/04/21 Melatonin 10 mg PO HS 05/30/21 05/30/21 traMADol HCL [Ultram] 50 mg PO Q4-6H PRN 05/30/21 05/30/21 Previous Rx's Medication Instructions Recorded Sertraline [Zoloft] 50 mg PO DAILY 30 Days tab 02/20/21 rOPINIRole HCL [Requip] 0.25 mg PO HS 30 Days tab 02/20/21 traZODone HCL [Desyrel] 50 mg PO HS 30 Days tab 02/20/21 predniSONE 50 mg PO DAILY #4 tablet 09/01/21 Allergies Allergy/AdvReac Type Severity Reaction Status Date / Time Iodinated Contrast Media Allergy Rash/Hives Verified 09/01/21 14:32 [Iodinated Contrast Media - IV Dye] loracarbef [From Lorabid] Allergy Nausea & Verified 09/01/21 14:32 Vomiting Penicillins Allergy Rash/Hives Verified 09/01/21 14:32 sulfamethoxazole Allergy Rash/Hives Verified 09/01/21 14:32 [From Bactrim] trimethoprim [From Bactrim] Allergy Rash/Hives Verified 09/01/21 14:32 bupropion [From Wellbutrin] AdvReac Itching Verified 09/01/21 14:32 codeine AdvReac Vomiting Verified 09/01/21 14:32 Review of Systems ROS Statement: Those systems with pertinent positive or pertinent negative responses have been documented in the HPI. ROS Other: All systems not noted in ROS Statement are negative. Past Medical History Past Medical History: Diabetes Mellitus, Fibromyalgia, GERD/Reflux, Sleep Apnea/CPAP/BIPAP, Thyroid Disorder Additional Past Medical History / Comment(s): diet control diabetic. migraines, arthritis, sciatic issues History of Any Multi-Drug Resistant Organisms: None Reported Past Surgical History: Section, Orthopedic Surgery, Tubal Ligation Additional Past Surgical History / Comment(s): rt knee scope. bilat foot sx Past Anesthesia/Blood Transfusion Reactions: Motion Sickness, Postoperative Nausea & Vomiting (PONV) Past Psychological History: Anxiety, Depression, Panic Disorder Smoking Status: Never smoker Past Alcohol Use History: None Reported Past Drug Use History: Marijuana - Past Family History Mother Family Medical History: Cancer, Deep Vein Thrombosis (DVT) Additional Family Medical History / Comment(s): COLON CANCER General Exam Limitations: no limitations General appearance: alert, in no apparent distress Head exam: Present: atraumatic Eye exam: Present: normal appearance, PERRL, EOMI. Absent: scleral icterus, conjunctival injection ENT exam: Present: normal exam, mucous membranes moist Neck exam: Present: normal inspection, full ROM. Absent: tenderness Respiratory exam: Present: wheezes (Slight wheezing noted on exam). Absent: respiratory distress Cardiovascular Exam: Present: regular rate, normal rhythm, normal heart sounds GI/Abdominal exam: Present: soft, normal bowel sounds. Absent: distended, tenderness Course Vital Signs 09/01/21 14:27 Temperature 98.2 F Pulse Rate 89 Respiratory 18 Rate Blood Pressure 120/68 O2 Sat by Pulse 96 Oximetry Medical Decision Making - Medical Decision Making Chest x-ray shows minimal subsequent mental atelectasis in the left midlung that appears new compared to old exam. Normal heart. Liver lungs are clear of consolidation. Patient will be treated with steroids and albuterol. She already has albuterol at home. Patient will be discharged to follow-up with primary care. Will return here for any worsening symptoms. - Lab Data Lab Results 09/01/21 Range/Units 14:36 Coronavirus (PCR) Not Detected (Not Detectd) Disposition Clinical Impression: Cough Disposition: HOME SELF-CARE Condition: Good Instructions (If sedation given, give patient instructions): Upper Respiratory Infection (ED) Additional Instructions: Please take steroid as directed. Continue albuterol treatments at home. Follow-up with your doctor. Return to the emergency room for any worsening symptoms. Prescriptions: predniSONE 50 mg PO DAILY #4 tablet Is patient prescribed a controlled substance at d/c from ED?: No Referrals: Daniel Randolph DO [Primary Care Provider] - 1-2 days Time of Disposition: 16:31
[2021-09-01 16:56] VITALS: BP 122/70; PULSE 87; RESP 20; TEMP 98.4
== END 2021-09-01 16:56 | disposition home or self-care (01) ==
LOC: EC 13:44
DX: R05.9 Cough, unspecified (principal); E11.9 Type 2 diabetes mellitus without complications; K21.9 Gastro-esophageal reflux disease without esophagitis; E07.9 Disorder of thyroid, unspecified; F41.9 Anxiety disorder, unspecified; F32.A Depression, unspecified; F12.90 Cannabis use, unspecified, uncomplicated; Z20.822 Contact with and (suspected) exposure to COVID-19; Z88.0 Allergy status to penicillin; Z88.1 Allergy status to other antibiotic agents; Z88.2 Allergy status to sulfonamides; Z88.5 Allergy status to narcotic agent; Z88.6 Allergy status to analgesic agent; Z98.51 Tubal ligation status
CPT/HCPCS: 99285; 87635; 71046; J7512

== ENCOUNTER → 2021-12-24 | Outpatient (CLI) | payer OTHER ==
--- NOTE | 2021-12-25 10:23 | XR ---
EXAMINATION TYPE: XR lumbosacral spine min 4V DATE OF EXAM: 12/24/2021 COMPARISON: 10/22/2020 HISTORY: Low back pain TECHNIQUE: 5 view lumbar spine FINDINGS: There 5 lumbar-type vertebral bodies. The pedicles are intact. No spondylolysis is evident. There is a grade 1 spondylolisthesis of L4 anterior on L5. Some posterior disc space narrowing is pr esent L5-S1. Minimal posterior disc space narrowing may be present T12-L1 through L3-4. IMPRESSION: 1. Grade 1 spondylolisthesis of L4 anteriorly on L5. 2. Minimal posterior disc space narrowing upper and mid lumbar spine
--- NOTE | 2021-12-25 10:30 | XR ---
EXAMINATION TYPE: XR cervical spine comp DATE OF EXAM: 12/24/2021 COMPARISON: 01/19/2019 HISTORY: Chronic neck pain TECHNIQUE: 5 view cervical spine FINDINGS: There may be some mild narrowing of the left C5-6 foramen. Remaining foramen appear patent. Prevertebral space is normal. There is anterior cervical spine spurring at C6. Posterior spinal lame llar line is intact. The odontoid is obscured by the occiput. Disc heights appear preserved. IMPRESSION: 1. Minimal left C5-6 foraminal narrowing due to spurring. 2. Anterior cervical spine spur at C6.
--- NOTE | 2021-12-25 10:31 | XR ---
EXAMINATION TYPE: XR thoracic spine complete DATE OF EXAM: 12/24/2021 COMPARISON: 01/19/2019 HISTORY: Chronic back pain TECHNIQUE: 3 view thoracic spine FINDINGS: There are 12 thoracic type vertebral bodies. The pedicles are intact. Mild spondylosis in t he lower thoracic spine disc heights appear preserved. Vertebral body heights are preserved. Alignmen t is normal. IMPRESSION: 1. Minimal spondylosis thoracic spine. No acute osseous abnormality evident.
--- NOTE | 2021-12-25 10:33 | XR ---
EXAMINATION TYPE: XR shoulder complete RT DATE OF EXAM: 12/24/2021 COMPARISON: NONE HISTORY: Pain TECHNIQUE: Shoulder examined in 3 projections FINDINGS: The humeral head articulates with the glenoid. The acromio-clavicular junction is normal. No acute fractures or dislocations are evident. A follow up study can be performed 7-10 days from acute trauma for continued pain. IMPRESSION: 1. Unremarkable three-view right Shoulder
== END | disposition home or self-care (01) ==
LOC: RADXRMAIN 15:17
PROVIDERS: ATTEND Family Medicine
DX: M47.814 Spondylosis without myelopathy or radiculopathy, thoracic region (principal); M43.16 Spondylolisthesis, lumbar region; M25.78 Osteophyte, vertebrae; M51.86 Other intervertebral disc disorders, lumbar region; M25.561 Pain in right knee; M25.552 Pain in left hip; M25.551 Pain in right hip; M25.511 Pain in right shoulder
CPT/HCPCS: 72050; 72072; 72110

== ENCOUNTER → 2022-06-25 | Outpatient (CLI) | payer OTHER ==
--- NOTE | 2022-06-26 01:14 | EEG ---
ELECTROENCEPHALOGRAM REPORT PREAMBLE: This is a 51-year-old female with syncopal spell. The patient currently takes Zoloft, Xanax, Flexeril. Recently stopped taking tramadol. EEG FINDINGS: This is a 21-channel digital EEG recording with video component, utilizing 10/20 International System with referential and bipolar montages. Background consists of moderately well-developed and regulated, predominantly low-voltage fast frequency beta activity seen in bihemispheric region. Photic driving response was seen with some flash frequencies. Different stages of sleep were not seen. During later part of the study, much more well-formed 9 Hz posterior dominant alpha rhythm was seen, which was reactive to eye opening and closing. No focal or generalized epileptiform activity was seen. EKG channel showed no arrhythmia. IMPRESSION: This is a normal awake and drowsy EEG. No focal, lateralized, or epileptiform activity was seen. Slightly excessive low-voltage fast frequency beta activity suggests medication effect. MMNIL / IJN: [id number] /
== END ==
LOC: NEUROMAIN 07:55
PROVIDERS: ATTEND Family Medicine
DX: R55 Syncope and collapse (principal); Z91.041 Radiographic dye allergy status; Z88.0 Allergy status to penicillin; Z88.2 Allergy status to sulfonamides; Z88.8 Allergy status to other drugs, medicaments and biological substances
CPT/HCPCS: 95816

== ENCOUNTER → 2022-06-26 | Outpatient (CLI) | payer OTHER ==
--- NOTE | 2022-06-26 14:13 | US ---
EXAMINATION TYPE: US carotid duplex BILAT DATE OF EXAM: 06/26/2022 COMPARISON: NONE CLINICAL HISTORY: R55 SYNCOPE. TECHNIQUE: Carotid duplex ultrasound examination. Indirect Doppler criteria was utilized. FINDINGS: EXAM MEASUREMENTS: RIGHT: Peak Systolic Velocity (PSV) cm/sec ----- Right CCA: 83.1 ----- Right ICA: 84.2 ----- Right ECA: 159.3 ICA/CCA ratio: 1.0 RIGHT: End Diastole cm/sec ----- Right CCA: 23.7 ----- Right ICA: 31.4 ----- Right ECA: 18.7 LEFT: Peak Systolic Velocity (PSV) cm/sec ----- Left CCA: 88.3 ----- Left ICA: 104.3 ----- Left ECA: 94.0 ICA/CCA ratio: 1.2 LEFT: End Diastole cm/sec ----- Left CCA: 25.6 ----- Left ICA: 44.8 ----- Left ECA: 24.1 VERTEBRALS (direction of flow): Right Vertebral: Antegrade Left Vertebral: Antegrade Rhythm: Normal PROFESSIONAL SKATER NOTES: Mild atherosclerotic changes with no significant velocity increases. IMPRESSION: No hemodynamically significant internal carotid artery stenosis on either side. Criteria for Assigning % of Stenosis / Diameter reduction (Estimation based on the indirect measurements of the internal carotid artery velocities (ICA PSV). 1. Normal (no stenosis)=ICA PSV < 125 cm/s: ratio < 2.0: ICA EDV<40 cm/s. 2. Less than 50% stenosis=ICA PSV < 125 cm/s: ratio < 2.0: ICA EDV<40 cm/s. 3. 50 to 69% stenosis=ICA PSV of 125 to 230 cm/s: ration 2.0 ? 4.0: ICA EDV 40-100 cm/s. 4. Greater than 70% stenosis to near occlusion= ICA PSV > 230 cm/s: ratio > 4.0: ICA EDV > 100 cm/s. 5. Near occlusion= ICA PSV velocities may be low or undetectable: variable ratio and ICA EDV. 6. Total occlusion=unable to detect flow.
--- NOTE | 2022-06-26 15:33 | CT ---
EXAMINATION TYPE: CT brain wo/w con CT DLP: 2197.60 mGycm, Automated exposure control for dose reduction was used. DATE OF EXAM: 06/26/2022 2:44 PM COMPARISON: 09/18/2015. CLINICAL INDICATION:Female, 51 years old with history of R55 Syncope, vision changes and memory loss TECHNIQUE: Axial CT images of the brain with and without contrast were obtained with coronal and sagi ttal reformats created and reviewed. Contrast used:70 mL of Isovue 300 with IV Contrast, Oral contrast used: none. FINDINGS: Extra-axial spaces: No abnormal extra-axial fluid collections. Ventricular system: Within normal limits Cerebral parenchyma: No acute intraparenchymal hemorrhage or mass effect. The fonseca-white junction is well differentiated. No abnormal enhancement is seen after the administration of intravenous contras t. Cerebellum: Unremarkable. Mass effect: No evidence of midline shift. Intracranial vasculature: unremarkable Soft tissues: Normal. Calvarium/osseous structures: No depressed skull fracture. Paranasal sinuses and mastoid air cells: Clear. Visualized orbits: Orbital contents are intact. IMPRESSION: 1. No acute intracranial process. No evidence of mass. 2. No abnormal postcontrast enhancement.
== END | disposition home or self-care (01) ==
LOC: RADUSWWP 13:17
PROVIDERS: ATTEND Family Medicine
DX: R55 Syncope and collapse (principal)
CPT/HCPCS: 93880; 70470; Q9967

== ENCOUNTER → 2022-06-26 | Outpatient (CLI) | payer OTHER ==
--- NOTE | 2022-06-27 07:43 | MM ---
Reason for Exam: Screening (asymptomatic). Last mammogram was performed 6 year(s) and 7 month(s) ago. Patient History: Menarche at age 14. First Full-Term at age 20. Perimenopausal. Paternal aunt had breast cancer under age 50. Risk Values: [place] 5 year model risk: 0.7%. NCI Lifetime model risk: 6.5%. Prior Study Comparison: 11/22/2015 Bilateral Screening Mammogram, [facility]. Tissue Density: There are scattered fibroglandular densities. Findings: Analyzed By CAD. There is no suspicious group of microcalcifications or new suspicious mass in either breast. Overall Assessment: Negative, BI-RAD 1 Management: Screening Mammogram of both breasts in 1 year. A clinical breast exam by your physician is recommended on an annual basis and results should be correlated with mammographic findings. Electronically signed and approved by: Marciano Kiran M.D. Radiologis
== END | disposition home or self-care (01) ==
LOC: RADMAMWWP 12:49
PROVIDERS: ATTEND Obstetrics & Gynecology
DX: Z12.31 Encounter for screening mammogram for malignant neoplasm of breast (principal); Z80.3 Family history of malignant neoplasm of breast
CPT/HCPCS: 77063; 77067

== ENCOUNTER 2023-08-31 19:04 | Emergency (ER) | payer OTHER ==
[2023-08-31 19:42] VITALS: BP 153/95; PULSE 75; RESP 18; TEMP 98
--- NOTE | 2023-08-31 19:42 | ED ---
General Adult HPI - General Source: patient, RN notes reviewed Mode of arrival: ambulatory Limitations: no limitations <Carolyn Hathaway - Last Filed: 08/31/23 19:41> - General Source: patient, RN notes reviewed Mode of arrival: ambulatory Limitations: no limitations - History of Present Illness MD Complaint: Chest pain, abdominal pain <Nicolette Urbano - Last Filed: 09/01/23 03:06> - General Chief complaint: Chest Pain Stated complaint: abnormal labs Time Seen by Provider: 08/31/23 19:41 - History of Present Illness Initial comments: 52-year-old female presents emergency Department with chief complaint of chest discomfort. She states that she has been having this for around 2 days with associated muscle aches and fatigue. She was evaluated at urgent care where they performed an EKG and she was told that it was abnormal. She was advised to come to the emergency department. (Carolyn Hathaway) When I went to evaluate the patient, states that she has actually had multiple problems going on. She was also complaining of some shortness of breath along with epigastric pain. She feels like urgent care was more so concerned with the chest pain, and did not address the other issues that she had going on. The epigastric pain has been intermittent for a couple of months. Unsure if this is related to anything that she eats. Denies any nausea or vomiting. (Nicolette Urbano) - Related Data Home Medications Medication Instructions Recorded Confirmed Ibuprofen [Motrin] 800 mg PO TID PRN 01/18/18 06/04/21 Cyclobenzaprine [Flexeril] 10 mg PO TID PRN 11/10/18 06/04/21 ALPRAZolam [Xanax] 1 mg PO BID PRN 05/30/21 06/04/21 Melatonin 10 mg PO HS 05/30/21 05/30/21 traMADol HCL [Ultram] 50 mg PO Q4-6H PRN 05/30/21 05/30/21 Previous Rx's Medication Instructions Recorded Sertraline [Zoloft] 50 mg PO DAILY 30 Days tab 02/20/21 rOPINIRole HCL [Requip] 0.25 mg PO HS 30 Days tab 02/20/21 traZODone HCL [Desyrel] 50 mg PO HS 30 Days tab 02/20/21 Fluticasone Nasal [place] [Flonase 1 spray EA NOSTRIL DAILY 7 Days 09/01/21 Nasal [place]] #16 gm Ondansetron [Zofran ODT] 4 mg PO Q8HR PRN #15 tab 09/01/21 predniSONE 50 mg PO DAILY #4 tablet 09/01/21 Allergies Allergy/AdvReac Type Severity Reaction Status Date / Time Iodinated Contrast Media Allergy Rash/Hives Verified 08/31/23 19:37 [Iodinated Contrast Media - IV Dye] loracarbef [From Lorabid] Allergy Nausea & Verified 08/31/23 19:37 Vomiting Penicillins Allergy Rash/Hives Verified 08/31/23 19:37 sulfamethoxazole Allergy Rash/Hives Verified 08/31/23 19:37 [From Bactrim] trimethoprim [From Bactrim] Allergy Rash/Hives Verified 08/31/23 19:37 bupropion [From Wellbutrin] AdvReac Itching Verified 08/31/23 19:37 codeine AdvReac Vomiting Verified 08/31/23 19:37 Review of Systems ROS Other: All systems not noted in ROS Statement are negative. <Carolyn Hathaway - Last Filed: 08/31/23 19:41> ROS Other: All systems not noted in ROS Statement are negative. <Nicolette Urbano - Last Filed: 09/01/23 03:06> ROS Statement: Those systems with pertinent positive or pertinent negative responses have been documented in the HPI. Past Medical History Past Medical History: Diabetes Mellitus, Fibromyalgia, GERD/Reflux, Sleep Apnea/CPAP/BIPAP, Thyroid Disorder Additional Past Medical History / Comment(s): diet control diabetic. migraines, arthritis, sciatic issues History of Any Multi-Drug Resistant Organisms: None Reported Past Surgical History: Section, Orthopedic Surgery, Tubal Ligation Additional Past Surgical History / Comment(s): rt knee scope. bilat foot sx Past Anesthesia/Blood Transfusion Reactions: Motion Sickness, Postoperative Nausea & Vomiting (PONV) Past Psychological History: Anxiety, Depression, Panic Disorder Smoking Status: Never smoker Past Alcohol Use History: None Reported Past Drug Use History: Marijuana - Past Family History Mother Family Medical History: Cancer, Deep Vein Thrombosis (DVT) Additional Family Medical History / Comment(s): COLON CANCER <Carolyn Hathaway - Last Filed: 08/31/23 19:41> General Exam Limitations: no limitations <Carolyn Hathaway - Last Filed: 08/31/23 19:41> Limitations: no limitations General appearance: alert, in no apparent distress Head exam: Present: atraumatic, normocephalic, normal inspection Respiratory exam: Present: normal lung sounds bilaterally. Absent: respiratory distress, wheezes, rales, rhonchi, stridor Cardiovascular Exam: Present: regular rate, normal rhythm, normal heart sounds. Absent: systolic murmur, diastolic murmur, rubs, gallop, clicks GI/Abdominal exam: Present: soft, tenderness (epigastric), normal bowel sounds. Absent: distended Neurological exam: Present: alert, oriented X3, CN II-XII intact Psychiatric exam: Present: normal affect, normal mood Skin exam: Present: warm, dry, intact, normal color. Absent: rash <Nicolette Urbano - Last Filed: 09/01/23 03:06> - General Exam Comments Initial Comments: Visual Physical Exam Vital signs reviewed General: Well-appearing, nontoxic, no acute distress. Head: Normocephalic, atraumatic Eyes: PERRLA, EOMI ENT: Airway patent Chest: Nonlabored breathing Skin: No visual rash, normal skin tone Neuro: Alert and oriented 3 Musculoskeletal: No gross abnormalities (Carolyn Hathaway) Course Vital Signs 08/31/23 19:35 Temperature 98 F Pulse Rate 75 Respiratory 18 Rate Blood Pressure 153/95 O2 Sat by Pulse 98 Oximetry Medical Decision Making <Carolyn Hathaway - Last Filed: 08/31/23 19:41> - Lab Data Result diagrams: 08/31/23 19:38 08/31/23 19:38 - Radiology Data Radiology results: report reviewed, image reviewed <Nicolette Urbano - Last Filed: 09/01/23 03:06> - Medical Decision Making I preformed the quick note portion of this chart. signed by Carolyn Hathaway PA-C (Carolyn Hathaway) This is a 52-year-old female who presents to the emergency department for chest pain and abdominal pain. Was pt. sent in by a medical professional or institution? @ -No Did you speak to anyone other than the patient for history? @ -No Did you review nursing and triage notes? @ -Yes, and I agree, it is accurate with regards to the patient's symptoms. Were old charts reviewed? @ -No Differential Diagnosis? @ -Differential Chest Pain: Stable Angina, Unstable Angina, STEMI, NSTEMI Aortic Dissection, Pneumothorax, Musculoskeletal, Esophageal Spasm GERD, Cholecystitis, Pancreatitis, Zoster, this is not meant to be an all-inclusive list. EKG interpreted by me (3pts min.)? @ -EKG interpreted by me demonstrating the following: Sinus rhythm. Ventricular rate 62 beats per minute, HI interval 141 ms, QRS duration 72 ms, QTC 397 ms. X-rays interpreted by me (1pt min.)? @ -Chest x-ray obtained, my interpretation identifies no localized consolid ations or infiltrates. CT interpreted by me (1pt min.)? @ -Not obtained U/S interpreted by me (1pt. min.)? @ -Gallbladder US obtained. My interpretation identifies no evidence of cholelithiasis. What testing was considered but not performed? (CT, X-rays, U/S, labs)? Why? @ -None What meds were considered but not given? Why? @ -None Did you discuss the management of the patient with other professionals? @ -No Did you reconcile home meds? @ -No Was smoking cessation discussed for >3mins.? @ -No Was critical care preformed (if so, how long)? @ -No Were there social determinants of health that impacted care today? How? (Homelessness, low income, unemployed, alcoholism, drug addiction, transportation, low edu. Level, literacy, decrease access to med. care, long term, rehab)? @ -No Was there de-escalation of care discussed even if they declined? (Discuss DNR or withdrawal of care, Hospice)? @ -No What co-morbidities impacted this encounter? (DM, HTN, Smoking, COPD, CAD, Cancer, CVA, Hep., AIDS, mental health diagnosis, sleep apnea, morbid obesity)? @ -DM, GERD Was patient admitted / discharged? @ -Discharged. Lab work obtained and found to be nonactionable. COVID, influenza, and RSV testing were negative. Chest x-ray reveals no acute process. Given her other concerns with abdominal pain, I did offer to obtain a gallbladder ultrasound. She requested we proceed. Gallbladder US obtained revealing no acute process. Advised follow-up with her primary care provider for further evaluation of these ongoing symptoms. Patient otherwise discharged home in stable condition. Undiagnosed new problem with uncertain prognosis? @ -None Drug Therapy requiring intensive monitoring for toxicity (Heparin, Nitro, Insulin, Cardizem)? @ -None Were any procedures done? @ -None Diagnosis/symptom? @ -Chest pain, abdominal pain Acute, or Chronic, or Acute on Chronic? @ -Acute Uncomplicated (without systemic symptoms) or Complicated (systemic symptoms)? @ -Uncomplicated Side effects of treatment? @ -None Exacerbation, Progression, or Severe Exacerbation] @ -Not applicable Poses a threat to life or bodily function? @ -Unlikely Return precautions reviewed in depth, the patient is instructed to return to the emergency department with any new, worsening, or concerning symptoms. Patient verbalized understanding. This case was discussed in detail with the attending ED physician, Dr. Hernandez. Presentation, findings, and treatment plan discussed in detail as well. (Nicolette Urbano) - Lab Data Lab Results 08/31/23 08/31/23 08/31/23 Range/Units 19:38 19:38 19:38 WBC 8.8 (3.8-10.6) k/uL RBC 4.61 (3.80-5.40) m/uL Hgb 13.4 (11.4-16.0) gm/dL Hct 41.2 (34.0-46.0) % MCV 89.2 (80.0-100.0) fL MCH 29.0 (25.0-35.0) pg MCHC 32.5 (31.0-37.0) g/dL RDW 13.9 (11.5-15.5) % Plt Count 290 (150-450) k/uL MPV 7.6 Neutrophils % 57 % Lymphocytes % 35 % Monocytes % 3 % Eosinophils % 4 % Basophils % 0 % Neutrophils # 5.1 (1.3-7.7) k/uL Lymphocytes # 3.1 (1.0-4.8) k/uL Monocytes # 0.3 (0-1.0) k/uL Eosinophils # 0.3 (0-0.7) k/uL Basophils # 0.0 (0-0.2) k/uL PT 9.9 L (10.0-12.5) sec INR 0.9 (<1.2) APTT 23.7 (22.0-30.0) sec Sodium 138 (137-145) mmol/L Potassium 3.9 (3.5-5.1) mmol/L Chloride 106 (98-107) mmol/L Carbon Dioxide 23 (22-30) mmol/L Anion Gap 9 mmol/L BUN 13 (7-17) mg/dL Creatinine 0.80 (0.52-1.04) mg/dL Est GFR (CKD-EPI)AfAm >90 (>60 ml/min/1.73 sqM) Est GFR (CKD-EPI)NonAf 86 (>60 ml/min/1.73 sqM) Glucose 125 H (74-99) mg/dL Calcium 9.7 (8.4-10.2) mg/dL Magnesium 1.9 (1.6-2.3) mg/dL Total Bilirubin 0.3 (0.2-1.3) mg/dL AST 22 (14-36) U/L ALT 16 (4-34) U/L Alkaline Phosphatase 81 (38-126) U/L Troponin I (0.000-0.034) ng/mL Total Protein 7.0 (6.3-8.2) g/dL Albumin 4.3 (3.5-5.0) g/dL Lipase (23-300) U/L Influenza Type A (PCR) (Not Detectd) Influenza Type B (PCR) (Not Detectd) RSV (PCR) (Not Detectd) SARS-CoV-2 (PCR) (Not Detectd) 08/31/23 08/31/23 08/31/23 Range/Units 19:38 19:38 19:38 WBC (3.8-10.6) k/uL RBC (3.80-5.40) m/uL Hgb (11.4-16.0) gm/dL Hct (34.0-46.0) % MCV (80.0-100.0) fL MCH (25.0-35.0) pg MCHC (31.0-37.0) g/dL RDW (11.5-15.5) % Plt Count (150-450) k/uL MPV Neutrophils % % Lymphocytes % % Monocytes % % Eosinophils % % Basophils % % Neutrophils # (1.3-7.7) k/uL Lymphocytes # (1.0-4.8) k/uL Monocytes # (0-1.0) k/uL Eosinophils # (0-0.7) k/uL Basophils # (0-0.2) k/uL PT (10.0-12.5) sec INR (<1.2) APTT (22.0-30.0) sec Sodium (137-145) mmol/L Potassium (3.5-5.1) mmol/L Chloride (98-107) mmol/L Carbon Dioxide (22-30) mmol/L Anion Gap mmol/L BUN (7-17) mg/dL Creatinine (0.52-1.04) mg/dL Est GFR (CKD-EPI)AfAm (>60 ml/min/1.73 sqM) Est GFR (CKD-EPI)NonAf (>60 ml/min/1.73 sqM) Glucose (74-99) mg/dL Calcium (8.4-10.2) mg/dL Magnesium (1.6-2.3) mg/dL Total Bilirubin (0.2-1.3) mg/dL AST (14-36) U/L ALT (4-34) U/L Alkaline Phosphatase (38-126) U/L Troponin I <0.012 (0.000-0.034) ng/mL Total Protein (6.3-8.2) g/dL Albumin (3.5-5.0) g/dL Lipase 77 (23-300) U/L Influenza Type A (PCR) Not Detected (Not Detectd) Influenza Type B (PCR) Not Detected (Not Detectd) RSV (PCR) Not Detected (Not Detectd) SARS-CoV-2 (PCR) Not Detected (Not Detectd) Disposition <Carolyn Hathaway - Last Filed: 08/31/23 19:41> Is patient prescribed a controlled substance at d/c from ED?: No <Nicolette Urbano - Last Filed: 09/01/23 03:06> Clinical Impression: Chest pain Disposition: HOME SELF-CARE Instructions (If sedation given, give patient instructions): Chest Pain (ED) Additional Instructions: Return to the emergency department with any new, worsening, or concerning symptoms. Follow up with your primary care provider in 1-2 days. Referrals: Daniel Randolph DO [Primary Care Provider] - 1-2 days
[2023-08-31 20:19] LABS: ALT 16 U/L (4-34); AST 22 U/L (14-36); African American GFR (CKD) >90 (>60 ml/min/1.73 sqM); Albumin 4.3 g/dL (3.5-5.0); Alkaline Phosphatase 81 U/L (38-126); Anion Gap 9 mmol/L; Blood Urea Nitrogen 13 mg/dL (7-17); Calcium 9.7 mg/dL (8.4-10.2); Carbon Dioxide 23 mmol/L (22-30); Chloride 106 mmol/L (98-107); Glucose 125 mg/dL (74-99); Magnesium 1.9 mg/dL (1.6-2.3); Non-African American GFR(CKD) 86 (>60 ml/min/1.73 sqM); Potassium 3.9 mmol/L (3.5-5.1); Sodium 138 mmol/L (137-145); Total Bilirubin 0.3 mg/dL (0.2-1.3)
[2023-08-31 20:20] LABS: Basophils % (A) 0 %; Eosinophils # (A) 0.3 k/uL (0-0.7); Eosinophils % (A) 4 %; HCT 41.2 % (34.0-46.0); HGB 13.4 gm/dL (11.4-16.0); Lymphocytes # (A) 3.1 k/uL (1.0-4.8); Lymphocytes % (A) 35 %; MCHC 32.5 g/dL (31.0-37.0); MCV 89.2 fL (80.0-100.0); Mean Platelet Volume 7.6; Monocytes # (A) 0.3 k/uL (0-1.0); Monocytes % (A) 3 %; Neutrophils # (A) 5.1 k/uL (1.3-7.7); Neutrophils % (A) 57 %; Platelet Count 290 k/uL (150-450); RBC 4.61 m/uL (3.80-5.40); RDW 13.9 % (11.5-15.5); WBC 8.8 k/uL (3.8-10.6)
[2023-08-31 20:44] LABS: INR 0.9 (<1.2); Partial Thromboplastin Time 23.7 sec (22.0-30.0); Prothrombin Time 9.9 sec (10.0-12.5)
--- NOTE | 2023-08-31 20:59 | XR ---
EXAMINATION TYPE: XR chest 2V DATE OF EXAM: 08/31/2023 8:39 PM CLINICAL INDICATION:Female, 52 years old with history of Chest Pain; COMPARISON: Chest radiographs from 09/01/2021 TECHNIQUE: XR chest 2V Frontal and lateral views of the chest. FINDINGS: Lungs/Pleura: There is no evidence of pleural effusion, focal consolidation, or pneumothorax. Pulmonary vascularity: Unremarkable. Heart/mediastinum: Cardiomediastinal silhouette is unremarkable. Musculoskeletal: No acute osseous pathology. IMPRESSION: No acute cardiopulmonary disease/process.
--- NOTE | 2023-09-01 02:39 | US ---
EXAM: US Abdomen Limited, Gallbladder CLINICAL HISTORY: Right breast is only pain TECHNIQUE: Real-time ultrasound of the right upper quadrant with image documentation. COMPARISON: No relevant prior studies available. FINDINGS: Liver: The liver is heterogeneous and increased in echogenicity consistent with fatty infiltration. Gallbladder: Unremarkable. No gallstones. Common bile duct: Unremarkable as visualized. No stones. No dilation. Pancreas: Unremarkable as visualized. Right kidney: Unremarkable. IMPRESSION: No acute findings in the right upper quadrant. Hepatic steatosis.
== END 2023-09-01 01:32 | disposition home or self-care (01) ==
LOC: EC 19:04
DX: R07.89 Other chest pain (principal); E11.9 Type 2 diabetes mellitus without complications; G47.30 Sleep apnea, unspecified; F12.90 Cannabis use, unspecified, uncomplicated; Z79.899 Other long term (current) drug therapy; Z86.59 Personal history of other mental and behavioral disorders; Z88.0 Allergy status to penicillin; Z88.2 Allergy status to sulfonamides; Z88.5 Allergy status to narcotic agent; Z88.8 Allergy status to other drugs, medicaments and biological substances; Z91.041 Radiographic dye allergy status; Z20.822 Contact with and (suspected) exposure to COVID-19
CPT/HCPCS: 36415; 71046; 76705; 80053; 83690; 83735; 84484; 85025; 85610; 85730; 87636; 93005; 99285

== ENCOUNTER 2023-09-02 16:36 | Emergency (ER) | payer OTHER ==
--- NOTE | 2023-09-02 16:42 | ED ---
General Adult HPI - General Source: RN notes reviewed <Annemarie Stephen - Last Filed: 09/02/23 16:41> - General Source: patient, RN notes reviewed, old records reviewed <Mauricio Pittman - Last Filed: 09/03/23 00:06> - General Stated complaint: abd pain Time Seen by Provider: 09/02/23 16:41 - History of Present Illness Initial comments: 52-year-old female presents to the emergency department with a chief complaint of abdominal pain. Patient reports she is here yesterday for the same. She reports no change in symptoms. (Annemarie Stephen) Patient is a 52-year-old female presents with department over concern for abdominal pain. Patient originally evaluated as a quick note. Patient was evaluated here 2 days ago for some more symptoms. No change in symptoms. Workup today is ago included laboratory studies, cardiac screening. I'll let her ultrasound was unremarkable. Workup was unremarkable and she was discharged home. Presents today his symptoms are persisting. Describes it as a burning sensation and achy that is mostly in the epigastric region with some radiation u p as well as over to the right side of her upper abdomen. No significant chest pain. No shortness of breath. No fevers or chills. No cough. Nurses mild diarrhea with it as well. No history of abdominal surgeries other than tubal ligation. Presents for further evaluation at this time. Does have a history of non-insulin dependent diabetes. I evaluated patient when she was placed in a room. (Mauricio Pittman) - Related Data Previous Rx's Medication Instructions Recorded Sertraline [Zoloft] 50 mg PO DAILY 30 Days tab 02/20/21 Pantoprazole Sodium [Protonix] 20 mg PO DAILY 14 Days #14 tab 09/02/23 Allergies Allergy/AdvReac Type Severity Reaction Status Date / Time Iodinated Contrast Media Allergy Rash/Hives Verified 09/02/23 22:19 [Iodinated Contrast Media - IV Dye] loracarbef [From Lorabid] Allergy Nausea & Verified 09/02/23 22:19 Vomiting Penicillins Allergy Unknown Verified 09/02/23 22:19 Childhood sulfamethoxazole Allergy Unknown Verified 09/02/23 22:19 [From Bactrim] Childhood trimethoprim [From Bactrim] Allergy Unknown Verified 09/02/23 22:19 Childhood bupropion [From Wellbutrin] AdvReac Itching Verified 09/02/23 22:19 codeine AdvReac Vomiting Verified 09/02/23 22:19 Review of Systems ROS Other: All systems not noted in ROS Statement are negative. <Annemarie Stephen - Last Filed: 09/02/23 16:41> ROS Other: All systems not noted in ROS Statement are negative. <Mauricio Pittman - Last Filed: 09/03/23 00:06> ROS Statement: Those systems with pertinent positive or pertinent negative responses have been documented in the HPI. Review of Systems: CONST: Denies fever EYES: Denies blurry vision ENT: Denies nasal congestion C/V: Denies Chest pain RESP: Denies shortness of breath GI: Endorses epigastric abdominal pain : Denies dysuria SKIN: Denies rash. MSK: Denies joint pain. NEURO: Denies headache (Mauricio Pittman) Past Medical History Past Medical History: Diabetes Mellitus, Fibromyalgia, GERD/Reflux, Sleep Apnea/CPAP/BIPAP, Thyroid Disorder Additional Past Medical History / Comment(s): diet control diabetic. migraines, arthritis, sciatic issues History of Any Multi-Drug Resistant Organisms: None Reported Past Surgical History: Section, Orthopedic Surgery, Tubal Ligation Additional Past Surgical History / Comment(s): rt knee scope. bilat foot sx Past Anesthesia/Blood Transfusion Reactions: Motion Sickness, Postoperative Nausea & Vomiting (PONV) Past Psychological History: Anxiety, Depression, Panic Disorder Smoking Status: Never smoker Past Alcohol Use History: None Reported Past Drug Use History: Marijuana - Past Family History Mother Family Medical History: Cancer, Deep Vein Thrombosis (DVT) Additional Family Medical History / Comment(s): COLON CANCER <Annemarie Stephen - Last Filed: 09/02/23 16:41> General Exam <Annemarie Stephen - Last Filed: 09/02/23 16:41> <Mauricio Pittman - Last Filed: 09/03/23 00:06> - General Exam Comments Initial Comments: Visual Physical Exam Vital signs reviewed General: Well-appearing, nontoxic, no acute distress. Head: Normocephalic, atraumatic Eyes: PERRLA, EOMI ENT: Airway patent Chest: Nonlabored breathing Skin: No visual rash, normal skin tone Neuro: Alert and oriented 3 Musculoskeletal: No gross abnormalities (Annemarie Stephen) General: Appears in no acute distress. HEAD: Normal with no signs of head trauma. EYES: PERRLA, EOMI, conjunctiva normal, no discharge. ENT: Hearing grossly intact, normal oropharynx. RESPIRATORY: Clear breath sounds bilaterally. No wheezes, rales, or rhonchi. C/V: Regular rate and rhythm. S1 and S2 auscultated, no edema, peripheral pulses 2+ and intact throughout ABD: Abdomen soft, nondistended. Minimal tenderness to palpation in the epigastric region. Negative Latif sign. No guarding. No rebound tenderness. No peritoneal signs. EXT: Normal range of motion, no obvious deformity SKIN: No rashes or lesions observed on exposed skin. NEURO: Alert and oriented 4. (Mauricio Pittman) Course Vital Signs 09/02/23 16:54 Temperature 98.1 F Pulse Rate 79 Respiratory 16 Rate Blood Pressure 137/84 O2 Sat by Pulse 98 Oximetry Medical Decision Making <Annemarie Stephen - Last Filed: 09/02/23 16:41> - Lab Data Result diagrams: 09/02/23 17:05 09/02/23 17:05 - EKG Data -: EKG Interpreted by Me <Mauricio Pittman - Last Filed: 09/03/23 00:06> - Medical Decision Making I performed the quick note portion of this exam, verbal signature Annemarie Stephen PA-C (Annemarie Stephen) Was pt. sent in by a medical professional or institution (AMY Cullen, [facility], urgent care, hospital, or fpc...) When possible be specific @ -No Did you speak to anyone other than the patient for history (EMS, parent, family, police, friend...)? What history was obtained from this source @ -No Did you review nursing and triage notes (agree or disagree)? Why? @ -I reviewed and agree with nursing and triage notes Were old charts reviewed (outside hosp., previous admission, EMS record, old EKG, old radiological studies, urgent care reports/EKG's, fpc records)? Report findings @ -Old charts reviewed Differential Diagnosis (chest pain, altered mental status, abdominal pain women, abdominal pain men, vaginal bleeding, weakness, fever, dyspnea, syncope, headache, dizziness, GI bleed, back pain, seizure, CVA, palpatations, mental health, musculoskeletal)? @ -Differential Abdominal Pain Women: Appendicitis, Cholecystitis, diverticulosis, ischemic bowel, pancreatitis, hepatitis, UTI, gastroenteritis, AAA, incarcerated hernia, bowel obstruction, constipation, inflammatory bowel, hepatitis, peptic ulcer disease, splenic infarction, perforated viscus, vulvitis, ovarian torsion, PID, kidney stone, placenta abruption, this is not meant to be an all-inclusive list EKG interpreted by me (3pts min.). @ -As above X-rays interpreted by me (1pt min.). @ -None done CT interpreted by me (1pt min.). @ -CT abdomen and pelvis reveals no obvious acute intra-abdominal process. U/S interpreted by me (1pt. min.). @ -None done What testing was considered but not performed or refused? (CT, X-rays, U/S, labs)? Why? @ -None What meds were considered but not given or refused? Why? @ -None Did you discuss the management of the patient with other professionals (professionals i.e. , PA, [facility], lab, RT, psych nurse, social contact worker, manager home healthcare, teacher, press officer, housing case manager)? Give summary @ -No Was smoking cessation discussed for >3mins.? @ -No Was critical care preformed (if so, how long)? @ -No Were there social determinants of health that impacted care today? How? (Homelessness, low income, unemployed, alcoholism, drug addiction, transportation, low edu. Level, literacy, decrease access to med. care, care home, rehab)? @ -No Was there de-escalation of care discussed even if they declined (Discuss DNR or withdrawal of care, Hospice)? DNR status @ -No What co-morbidities impacted this encounter? (DM, HTN, Smoking, COPD, CAD, Cancer, CVA, ARF, Chemo, Hep., AIDS, mental health diagnosis, sleep apnea, morb id obesity)? @ -None Was patient admitted / discharged? Hospital course, mention meds given and route, prescriptions, significant lab abnormalities, going to OR and other pertinent info. @ -Based on the patient's presentation and physical exam, she presents complaining of abdominal pain. Patient is a revisit for multiple days ago. Had an abdominal workup as well as cardiac rule out the other day which was negative. She was discharged home. Still having symptoms. We repeated abdominal labs all patient was in just following quick no knees were unremarkable. I will add on a lipase, as well as screening with a troponin. Screening EKG will be obtained. The wet ultrasound obtain the other day was negative for any obvious process other than hepatic steatosis. The lateral within acceptable limits. Chest x-ray the other day also was within acceptable limits. I discussed these results, and she is a revisit we will obtain a CT a bdomen and pelvis in addition to the additional labs as stated above. She was in agreement this plan. She'll be sent likely treatment with a 1 L fluid bolus, IV Toradol, Reglan, as well as be given premeds with Pepcid, Benadryl as pre treatment for the CT scan. She also received a GI cocktail. Patient agreement with this plan. EKG shows no evidence of acute ischemia. Troponin undetectable. Lipase is within normal limits. Remainder of the workup unremarkable. CT imaging shows no obvious acute intra-abdominal process. On reevaluation, after the patient results of her workup. She expressed understanding. Current diagnosis is abdominal pain of unknown etiology. I did concern for and also recommended obtaining an EGD outpatient. She was in agreement this plan. She'll be given follow-up with GI. I'll provide her with a pack of Zofran ODT as well as a prescription for Protonix. Strict return precautions discussed. I will provide the patient with a prescription for Protonix. I instructed the patient to follow up with their PCP in the next 1-3 days. I provided contact information for follow up with gastroenterology. I explained that the patient should return to the emergency department if they experience any worsening symptoms. Strict return precautions were discussed with the patient. The patient expressed understanding of these instructions. I answered all questions that the patient had. The patient was discharged home in good condition with their prescriptions and follow up information. Undiagnosed new problem with uncertain prognosis? @ -No Drug Therapy requiring intensive monitoring for toxicity (Heparin, Nitro, Insulin, Cardizem)? @ -No Were any procedures done? @ -No Diagnosis/symptom? @ -Abdominal pain of unknown etiology Acute, or Chronic, or Acute on Chronic? @ -Acute Uncomplicated (without systemic symptoms) or Complicated (systemic symptoms)? @ -Uncomplicated Side effects of treatment? @ -none Exacerbation, Progression, or Severe Exacerbation] @ -no Poses a threat to life or bodily function? @ -Unlikely (Mauricio Pittman) - Lab Data Lab Results 09/02/23 09/02/23 09/02/23 Range/Units 17:05 17:05 17:05 WBC 9.0 (3.8-10.6) k/uL RBC 5.10 (3.80-5.40) m/uL Hgb 14.6 (11.4-16.0) gm/dL Hct 45.3 (34.0-46.0) % MCV 88.8 (80.0-100.0) fL MCH 28.7 (25.0-35.0) pg MCHC 32.3 (31.0-37.0) g/dL RDW 13.9 (11.5-15.5) % Plt Count 300 (150-450) k/uL MPV 7.6 Neutrophils % 51 % Lymphocytes % 38 % Monocytes % 4 % Eosinophils % 5 % Basophils % 0 % Neutrophils # 4.6 (1.3-7.7) k/uL Lymphocytes # 3.4 (1.0-4.8) k/uL Monocytes # 0.4 (0-1.0) k/uL Eosinophils # 0.5 (0-0.7) k/uL Basophils # 0.0 (0-0.2) k/uL Sodium 138 (137-145) mmol/L Potassium 4.9 (3.5-5.1) mmol/L Chloride 103 (98-107) mmol/L Carbon Dioxide 25 (22-30) mmol/L Anion Gap 10 mmol/L BUN 16 (7-17) mg/dL Creatinine 0.72 (0.52-1.04) mg/dL Est GFR (CKD-EPI)AfAm >90 (>60 ml/min/1.73 sqM) Est GFR (CKD-EPI)NonAf >90 (>60 ml/min/1.73 sqM) Glucose 93 (74-99) mg/dL Plasma Lactic Acid Yomi (0.7-2.0) mmol/L Calcium 10.0 (8.4-10.2) mg/dL Total Bilirubin 0.7 (0.2-1.3) mg/dL AST 31 (14-36) U/L ALT 15 (4-34) U/L Alkaline Phosphatase 75 (38-126) U/L Troponin I (0.000-0.034) ng/mL Total Protein 7.9 (6.3-8.2) g/dL Albumin 4.7 (3.5-5.0) g/dL Lipase (23-300) U/L Urine Color Urine Appearance (Clear) Urine pH (5.0-8.0) Ur Specific [place] (1.001-1.035) Urine Protein (Negative) Urine Glucose (UA) (Negative) Urine Ketones (Negative) Urine Blood (Negative) Urine Nitrite (Negative) Urine Bilirubin (Negative) Urine Urobilinogen (<2.0) mg/dL Ur Leukocyte Esterase (Negative) Urine RBC (0-5) /hpf Urine WBC (0-5) /hpf Ur Squamous Epith Cells (0-4) /hpf Hyaline Casts (0-2) /lpf Urine Mucus (None) /hpf Influenza Type A (PCR) Not Detected (Not Detectd) Influenza Type B (PCR) Not Detected (Not Detectd) RSV (PCR) Not Detected (Not Detectd) SARS-CoV-2 (PCR) Not Detected (Not Detectd) 09/02/23 09/02/23 09/02/23 Range/Units 17:05 21:38 21:38 WBC (3.8-10.6) k/uL RBC (3.80-5.40) m/uL Hgb (11.4-16.0) gm/dL Hct (34.0-46.0) % MCV (80.0-100.0) fL MCH (25.0-35.0) pg MCHC (31.0-37.0) g/dL RDW (11.5-15.5) % Plt Count (150-450) k/uL MPV Neutrophils % % Lymphocytes % % Monocytes % % Eosinophils % % Basophils % % Neutrophils # (1.3-7.7) k/uL Lymphocytes # (1.0-4.8) k/uL Monocytes # (0-1.0) k/uL Eosinophils # (0-0.7) k/uL Basophils # (0-0.2) k/uL Sodium (137-145) mmol/L Potassium (3.5-5.1) mmol/L Chloride (98-107) mmol/L Carbon Dioxide (22-30) mmol/L Anion Gap mmol/L BUN (7-17) mg/dL Creatinine (0.52-1.04) mg/dL Est GFR (CKD-EPI)AfAm (>60 ml/min/1.73 sqM) Est GFR (CKD-EPI)NonAf (>60 ml/min/1.73 sqM) Glucose (74-99) mg/dL Plasma Lactic Acid Yomi 1.3 (0.7-2.0) mmol/L Calcium (8.4-10.2) mg/dL Total Bilirubin (0.2-1.3) mg/dL AST (14-36) U/L ALT (4-34) U/L Alkaline Phosphatase (38-126) U/L Troponin I (0.000-0.034) ng/mL Total Protein (6.3-8.2) g/dL Albumin (3.5-5.0) g/dL Lipase 70 (23-300) U/L Urine Color Colorless Urine Appearance Cloudy H (Clear) Urine pH 6.0 (5.0-8.0) Ur Specific [place] 1.039 H (1.001-1.035) Urine Protein Negative (Negative) Urine Glucose (UA) Negative (Negative) Urine Ketones Negative (Negative) Urine Blood Negative (Negative) Urine Nitrite Negative (Negative) Urine Bilirubin Negative (Negative) Urine Urobilinogen <2.0 (<2.0) mg/dL Ur Leukocyte Esterase Negative (Negative) Urine RBC 1 (0-5) /hpf Urine WBC 1 (0-5) /hpf Ur Squamous Epith Cells 11 H (0-4) /hpf Hyaline Casts 1 (0-2) /lpf Urine Mucus Rare H (None) /hpf Influenza Type A (PCR) (Not Detectd) Influenza Type B (PCR) (Not Detectd) RSV (PCR) (Not Detectd) SARS-CoV-2 (PCR) (Not Detectd) 09/02/23 Range/Units 21:38 WBC (3.8-10.6) k/uL RBC (3.80-5.40) m/uL Hgb (11.4-16.0) gm/dL Hct (34.0-46.0) % MCV (80.0-100.0) fL MCH (25.0-35.0) pg MCHC (31.0-37.0) g/dL RDW (11.5-15.5) % Plt Count (150-450) k/uL MPV Neutrophils % % Lymphocytes % % Monocytes % % Eosinophils % % Basophils % % Neutrophils # (1.3-7.7) k/uL Lymphocytes # (1.0-4.8) k/uL Monocytes # (0-1.0) k/uL Eosinophils # (0-0.7) k/uL Basophils # (0-0.2) k/uL Sodium (137-145) mmol/L Potassium (3.5-5.1) mmol/L Chloride (98-107) mmol/L Carbon Dioxide (22-30) mmol/L Anion Gap mmol/L BUN (7-17) mg/dL Creatinine (0.52-1.04) mg/dL Est GFR (CKD-EPI)AfAm (>60 ml/min/1.73 sqM) Est GFR (CKD-EPI)NonAf (>60 ml/min/1.73 sqM) Glucose (74-99) mg/dL Plasma Lactic Acid Yomi (0.7-2.0) mmol/L Calcium (8.4-10.2) mg/dL Total Bilirubin (0.2-1.3) mg/dL AST (14-36) U/L ALT (4-34) U/L Alkaline Phosphatase (38-126) U/L Troponin I <0.012 (0.000-0.034) ng/mL Total Protein (6.3-8.2) g/dL Albumin (3.5-5.0) g/dL Lipase (23-300) U/L Urine Color Urine Appearance (Clear) Urine pH (5.0-8.0) Ur Specific [place] (1.001-1.035) Urine Protein (Negative) Urine Glucose (UA) (Negative) Urine Ketones (Negative) Urine Blood (Negative) Urine Nitrite (Negative) Urine Bilirubin (Negative) Urine Urobilinogen (<2.0) mg/dL Ur Leukocyte Esterase (Negative) Urine RBC (0-5) /hpf Urine WBC (0-5) /hpf Ur Squamous Epith Cells (0-4) /hpf Hyaline Casts (0-2) /lpf Urine Mucus (None) /hpf Influenza Type A (PCR) (Not Detectd) Influenza Type B (PCR) (Not Detectd) RSV (PCR) (Not Detectd) SARS-CoV-2 (PCR) (Not Detectd) - EKG Data EKG Comments: 12-lead Electrocardiogram Interpretation Note EKG was reviewed and interpreted by myself. 12-lead ECG performed at 2234 is interpreted by me as revealing sinus bradycardia at a rate of 56 beats per minute. [place] is normal. OK interval is 127 ms, QRS durations 113 ms, QTc is 401 ms.. There were no ST or T wave abnormalities to suggest myocardial ischemia or injury. R wave progression across the precordium was satisfactory. By my interpretation this EKG is non-diagnostic for acute ischemia. (Mauricio Pittman) Disposition <Annemarie Stephen - Last Filed: 09/02/23 16:41> Is patient prescribed a controlled substance at d/c from ED?: No Time of Disposition: 23:56 <Mauricio Pittman - Last Filed: 09/03/23 00:06> Clinical Impression: Abdominal pain of unknown etiology Disposition: HOME SELF-CARE Condition: Good Instructions (If sedation given, give patient instructions): Abdominal Pain (ED) Prescriptions: Pantoprazole Sodium [Protonix] 20 mg PO DAILY 14 Days #14 tab Referrals: Daniel Randolph DO [Primary Care Provider] - 1-2 days Daily Shea MD [STAFF PHYSICIAN] - 1-2 days
[2023-09-02 17:10] VITALS: RESP 16; TEMP 98.1
[2023-09-02 17:28] LABS: Basophils % (A) 0 %; Eosinophils # (A) 0.5 k/uL (0-0.7); Eosinophils % (A) 5 %; HCT 45.3 % (34.0-46.0); HGB 14.6 gm/dL (11.4-16.0); Lymphocytes # (A) 3.4 k/uL (1.0-4.8); Lymphocytes % (A) 38 %; MCH 28.7 pg (25.0-35.0); MCHC 32.3 g/dL (31.0-37.0); MCV 88.8 fL (80.0-100.0); Mean Platelet Volume 7.6; Monocytes # (A) 0.4 k/uL (0-1.0); Monocytes % (A) 4 %; Neutrophils # (A) 4.6 k/uL (1.3-7.7); Neutrophils % (A) 51 %; Platelet Count 300 k/uL (150-450); RDW 13.9 % (11.5-15.5)
[2023-09-02 17:32] LABS: ALT 15 U/L (4-34); African American GFR (CKD) >90 (>60 ml/min/1.73 sqM); Anion Gap 10 mmol/L; Blood Urea Nitrogen 16 mg/dL (7-17); Carbon Dioxide 25 mmol/L (22-30); Chloride 103 mmol/L (98-107); Glucose 93 mg/dL (74-99); Non-African American GFR(CKD) >90 (>60 ml/min/1.73 sqM); Sodium 138 mmol/L (137-145); Total Bilirubin 0.7 mg/dL (0.2-1.3)
[2023-09-02 17:35] LABS: AST 31 U/L (14-36); Alkaline Phosphatase 75 U/L (38-126); Potassium 4.9 mmol/L (3.5-5.1); Total Protein 7.9 g/dL (6.3-8.2)
[2023-09-02 17:36] LABS: Albumin 4.7 g/dL (3.5-5.0)
[2023-09-02] MEDS ORDERED: diphenhydrAMINE 50 MG/ML 1 ML VIAL IVP STA ×2 (21:30→21:38)
[2023-09-02] MEDS ORDERED: METOCLOPRAMIDE 5 MG/ML 2 ML VIAL IVP STA (21:30)
[2023-09-02] MEDS ORDERED: SODIUM CHLORIDE 0.9% 1,000 ML IV STA (21:30)
[2023-09-02] MEDS ORDERED: KETOROLAC 15 MG/ML 1 ML VIAL IVP STA (21:30)
[2023-09-02] MEDS ORDERED: MAG HYDROX/AL HYDROX/SIMETH 30 ML, HYOSCYAMINE ELIXIR 10 ML, LIDOCAINE VISCOUS 2% 10 ML PO STA ×3 (21:30)
[2023-09-02] MEDS ORDERED: FAMOTIDINE 20 MG/2 ML VIAL IV STA (21:38)
[2023-09-02] MEDS ORDERED: methylPREDNISolone SOD SUCCI 125 MG/2 ML VIAL IV STA (21:38)
[2023-09-02 23:35] LABS: Appearance,Urine Cloudy (Clear); Bilirubin,Urine Negative (Negative); Blood,Urine Negative (Negative); Color,Urine Colorless; Glucose,Urine (UA) Negative (Negative); Hyaline Casts,Urine 1 /lpf (0-2); Ketones,Urine Negative (Negative); Leukocyte Esterase,Urine Negative (Negative); Mucus,Urine Rare /hpf; Nitrite,Urine Negative (Negative); Protein,Urine Negative (Negative); RBC,Urine 1 /hpf (0-5); Specific Gravity,Urine 1.039 (1.001-1.035); Squamous Epithelial Cell,Urine 11 /hpf (0-4); Urobilinogen,Urine <2.0 mg/dL (<2.0); WBC,Urine 1 /hpf (0-5)
--- NOTE | 2023-09-02 23:49 | CT ---
EXAM: CT Abdomen and Pelvis With Intravenous Contrast CLINICAL HISTORY: ITS.REASON CT Reason: epigastric abd pain TECHNIQUE: Axial computed tomography images of the abdomen and pelvis with intravenous contrast. CTDI is 47.1 mGy and DLP is 2162.1 mGy-cm. This CT exam was performed using one or more of the following dose reduction techniques: automated exposure control, adjustment of the mA and/or kV according to patient size, and/or use of iterative reconstruction technique. COMPARISON: No relevant prior studies available. FINDINGS: Lung bases: Unremarkable. No mass. No consolidation. ABDOMEN: Liver: Hepatic steatosis. Gallbladder and bile ducts: Unremarkable. No calcified stones. No ductal dilation. Pancreas: Unremarkable. No mass. No ductal dilation. Spleen: Unremarkable. No splenomegaly. Adrenals: Unremarkable. No mass. Kidneys and ureters: Unremarkable. No solid mass. No hydronephrosis. Stomach and bowel: Unremarkable. No acute diverticulitis. No small bowel obstruction. No free intraperitoneal air. PELVIS: Appendix: Normal appendix. Bladder: Decompressed urinary bladder. Reproductive: Unremarkable as visualized. ABDOMEN and PELVIS: Intraperitoneal space: Unremarkable. No free air. No significant fluid collection. Bones/joints: No acute fracture. No dislocation. Soft tissues: Unremarkable. Vasculature: Unremarkable. No abdominal aortic aneurysm. Lymph nodes: Unremarkable. No enlarged lymph nodes. IMPRESSION: 1. No acute diverticulitis. No small bowel obstruction. No free intraperitoneal air. 2. Normal appendix.
[2023-09-02] MEDS ORDERED: ONDANSETRON 4 MG ODT STARTER PACK 2 TAB BTL PO STA (23:58)
[2023-09-03 01:00] VITALS: BP 116/63; PULSE 61
== END 2023-09-03 00:48 | disposition home or self-care (01) ==
LOC: EC 16:36
DX: R10.11 Right upper quadrant pain (principal); E11.9 Type 2 diabetes mellitus without complications; G47.30 Sleep apnea, unspecified; F12.90 Cannabis use, unspecified, uncomplicated; Z88.0 Allergy status to penicillin; Z88.2 Allergy status to sulfonamides; Z88.5 Allergy status to narcotic agent; Z88.8 Allergy status to other drugs, medicaments and biological substances; Z91.041 Radiographic dye allergy status; Z86.59 Personal history of other mental and behavioral disorders; Z20.822 Contact with and (suspected) exposure to COVID-19
CPT/HCPCS: 36415; 80053; 83605; 83690; 84484; 85025; 81001; 87636; 74177; 99284; 96374; 96375 ×4; 96361; J1200; J2765; J2930; J3490; J1885; S0119; Q9967

== ENCOUNTER → 2023-10-16 | Outpatient (CLI) | payer OTHER ==
--- NOTE | 2023-10-17 11:38 | XR ---
EXAMINATION TYPE: XR Hip Bilateral Complete DATE OF EXAM: 10/16/2023 5:12 PM CLINICAL INDICATION:Female, 52 years old with history of M25.552,M25.551,M54.5; [facility] COMPARISON: None. TECHNIQUE: XR Hip Bilateral Complete; hip was examined in the frontal and lateral projections and a A P pelvis. FINDINGS: No evidence for acute process, joint dislocation or significant soft tissue swelling. Osteo phyte formation of the superior acetabulum of the hip. IMPRESSION: 1. No evidence for acute process. 2. Mild hip osteoarthrosis.
--- NOTE | 2023-10-17 11:39 | XR ---
EXAMINATION TYPE: XR foot complete bilateral, XR ankle complete bilateral DATE OF EXAM: 10/16/2023 5:13 PM CLINICAL INDICATION:Female, 52 years old with history of M25.552,M25.551,M54.5; [facility] COMPARISON: None TECHNIQUE: XR foot complete bilateral, XR ankle complete bilateral examined in the AP, oblique, and l ateral projections. FINDINGS: No evidence of any acute osseous pathology. No evidence of soft tissue swelling. Joints are preserve d. Calcaneal plantar spurring is present bilaterally. Mild multifocal joint space narrowing osteophyt e formation of the joints of the feet. Calcaneal Achilles enthesophyte formation bilaterally. IMPRESSION: 1. No evidence of acute fracture. 2. Number Mild bilateral multifocal osteoarthrosis
--- NOTE | 2023-10-17 11:40 | XR ---
EXAMINATION TYPE: XR lumbosacral spine min 4V DATE OF EXAM: 10/16/2023 5:13 PM CLINICAL INDICATION:Female, 52 years old with history of M25.552,M25.551,M54.5; [facility] COMPARISON: None TECHNIQUE: XR lumbosacral spine min 4V - Frontal, lateral , bilateral oblique and coned in L5-S1 late ral views of the spine. FINDINGS: No evidence of any acute osseous pathology. No evidence of loss of vertebral body height i s seen. There is grade 1 anterolisthesis of L4 and L5 alignment of the lumbar vertebral bodies. Mild scattered disc space narrowing. Multilevel marginal osteophyte formation throughout the visualized sp ine. There is facet joint arthropathy throughout the spine. Scattered at least mild neural foraminal stenosis worse at L4-L5 and L5-S1. IMPRESSION: 1. No acute fracture. 2. Moderate multilevel disc degeneration. 3. Grade 1 anterolisthesis of L4 and L5.
--- NOTE | 2023-10-17 11:41 | XR ---
EXAMINATION TYPE: XR knee complete bilateral DATE OF EXAM: 10/16/2023 5:12 PM CLINICAL INDICATION:Female, 52 years old with history of M25.552,M25.551,M54.5; COMPARISON: None. TECHNIQUE: XR knee complete bilateral; examined in Frontal, lateral and oblique projections. FINDINGS: No evidence of any acute osseous pathology, soft tissue swelling, or joint effusion is no damián. Tricompartmental osteophyte formation involving the femoral condyles, tibial plateau and patella. Mi ld joint space narrowing. A fabella is present. IMPRESSION: 1. No acute osseous pathology. 2. Mild tricompartmental osteoarthritic changes.
== END | disposition home or self-care (01) ==
LOC: RADXRMAIN 16:33
PROVIDERS: ATTEND Family Medicine
DX: M16.0 Bilateral primary osteoarthritis of hip (principal); M19.071 Primary osteoarthritis, right ankle and foot; M19.072 Primary osteoarthritis, left ankle and foot; M43.16 Spondylolisthesis, lumbar region; M51.36 Other intervertebral disc degeneration, lumbar region; M17.0 Bilateral primary osteoarthritis of knee
CPT/HCPCS: 72110; 73521

== ENCOUNTER → 2023-10-26 | Outpatient (CLI) | payer OTHER ==
--- NOTE | 2023-10-26 17:47 | NM ---
EXAMINATION TYPE: NM hepatobiliary w CCK DATE OF EXAM: 10/26/2023 COMPARISON: NONE CLINICAL INDICATION: Female, 52 years old with history of R10.11 RIGHT UPPER QUADRANT PAIN; TECHNIQUE: After the intravenous administration of 4.7 mCi Tc 99m Mebrofenin hepatobiliary scintigrap hy is performed. Immediate images post injection. FINDINGS: There is satisfactory initial accumulation of tracer by the liver but with slightly delayed clearance from the blood pool. The gallbladder is visualized within 26 minutes. The small bowel activity is noted within 14 minutes. At one hour CCK was administered, patient was injected with 2.34 mcg of Kin evac, and gallbladder ejection fraction is calculated at 95 %, elevated above the normal range. IMPRESSION: 1. Slightly delayed clearance of tracer from the blood pool. Correlate with LFTs to exclude underlyin g nonspecific hepatocellular disease. 2. No scintigraphic evidence for acute/chronic cholecystitis or biliary dyskinesia. 3. Elevated gallbladder ejection fraction of 95% may be seen in the setting of gallbladder hyperkines is.
== END | disposition home or self-care (01) ==
LOC: RADNMMAIN 13:29
PROVIDERS: ATTEND Family Medicine
DX: K82.8 Other specified diseases of gallbladder (principal)
CPT/HCPCS: 78227; A9537; J2805

== ENCOUNTER → 2024-10-07 | Outpatient (CLI) | payer BC ==
--- NOTE | 2024-10-07 19:15 | US ---
EXAMINATION TYPE: US thyroid st tissue head/neck DATE OF EXAM: 10/07/2024 COMPARISON: NONE CLINICAL INDICATION: Female, 53 years old with history of E04.9 Nontoxic goiter,unspecified; TECHNIQUE: Grayscale and color Doppler imaging of the thyroid gland. FINDINGS: GLAND SIZE: Right Lobe: 4.0 x 1.8 x 1.8 cm Overall Parenchyma: homogeneous Left Lobe: 4.3 x 1.4 x 1.4 cm Overall Parenchyma: homogeneous Isthmus Thickness: 0.4 cm NODULES RIGHT: # of nodules measured on right: 0 LEFT: # of nodules measured on left: 1 1. 0.8 X 0.4 x 0.4 cm, lower lateral, solid or almost completely solid, hypoechoic nodule, which is wider than tall, with ill-defined margins, without echogenic foci. TR 4 lesion. Prior size: No prior ISTHMUS: # of nodules measured in the isthmus: 0 Bilateral neck scanned, no evidence of lymphadenopathy. Normal size thyroid with 8 mm left thyroid nodule. IMPRESSION: As above. No follow-up needed. 2017 ACR TI-RADS LEVEL: TR-RADS 4 - Moderately Suspicious: Follow if > 1 cm, FNA if > 1.5 cm *Highest TI-RADS level nodule reported [email or web address] [facility], , 10/07/2024 7:13 PM
== END | disposition home or self-care (01) ==
LOC: RADUSWWP 15:51
PROVIDERS: ATTEND Obstetrics & Gynecology
DX: E04.9 Nontoxic goiter, unspecified (principal)
CPT/HCPCS: 76536

== ENCOUNTER → 2025-05-05 | Outpatient (CLI) | payer BC ==
[2025-05-05 09:53] LABS: African American GFR (CKD) >90 (>60 ml/min/1.73 sqM); Blood Urea Nitrogen 12 mg/dL (7-17); Non-African American GFR(CKD) >90 (>60 ml/min/1.73 sqM)
--- NOTE | 2025-05-05 11:58 | CT ---
EXAMINATION TYPE: CT chest abdomen w con DATE OF EXAM: 05/05/2025 COMPARISON: HISTORY: ruq pain CT DLP: 1254 mGycm. Automated Exposure Control for Dose Reduction was Utilized. CONTRAST: CT scan of the thorax, and abdomen is performed with IV Contrast, patient injected with 100 mL of Iso anabell 300. FINDINGS: LUNGS: No consolidative pneumonia or pulmonary edema. 5 mm subpleural nodule right lower lobe too sma ll to characterize but likely benign. Area of pleural thickening along the lateral posterior left heidi g base.. There is no pleural effusion or pneumothorax seen. The tracheobronchial tree is patent. MEDIASTINUM: There are no greater than 1 cm hilar or mediastinal lymph nodes. No pericardial effusi on is seen. HEART: Size within normal limits. No significant coronary artery calcifications. OTHER: No additional significant abnormality is seen. LIVER/GB: Liver reduced attenuation correlate for underlying hepatic steatosis. Area of mixed density along the medial margin of the caudate lobe most likely artifactual.. PANCREAS: No significant abnormality is seen. SPLEEN: No significant abnormality is seen. ADRENALS: Subcentimeter thickening or nodularity of the adrenal gland too small to characterize but s table most likely in the basis of benign adenoma or hyperplasia. KIDNEYS: No significant abnormality is seen. BOWEL: No significant abnormality is seen. LYMPH NODES: No greater than 1cm abdominal or pelvic lymph nodes are appreciated. OSSEOUS STRUCTURES: Hypertrophic and degenerative changes spine. Facet arthropathy. Grade 1 anterolis thesis L4-L5. OTHER: Posterior dependent soft tissue edema. IMPRESSION: 1. Hepatic steatosis correlate for underlying hepatocellular disease. Area of mixed density along the medial margin of the caudate lobe most likely is artifact rather than hepatic lesion. Recommend foll ow-up ultrasound right upper quadrant for confirmation. 2. 5 mm right lower lobe subpleural nodule recommend 12 month follow-up according to [employer] guidelines as clinically warranted. 3. Moderate retained stool burden correlate for constipation. [facility], , 05/05/2025 11:55 AM
== END | disposition home or self-care (01) ==
LOC: RADCTMAIN 08:28
PROVIDERS: ATTEND Family Medicine
DX: K44.9 Diaphragmatic hernia without obstruction or gangrene (principal); K21.9 Gastro-esophageal reflux disease without esophagitis; K76.0 Fatty (change of) liver, not elsewhere classified; R91.1 Solitary pulmonary nodule
CPT/HCPCS: 82565; 84520; 71260; 74160; 36415; Q9967